=== PATIENT | female | born 1930 | race Caucasian/White ===

== ENCOUNTER 2017-09-28 10:24 | Inpatient (IN) | payer MEDICARE, BC ==
[2017-09-28] MEDS ORDERED: Ondansetron 4 MG/2 ML SDV IVPUSH ONE (11:04)
--- NOTE | 2017-09-28 11:10 | EDM.PDOC ---
ED HPI GENERAL MEDICAL PROBLEM - General Chief Complaint: Gastrointestinal Problem Stated Complaint: ILLNESS Time Seen by Provider: 09/28/17 10:55 Source of Information: Reports: Patient, Family History Limitations: Reports: No Limitations - History of Present Illness INITIAL COMMENTS - FREE TEXT/NARRATIVE: 86-year-old female who still lives independently is brought in by her family because she is very ill. She's had persistent vomiting for the last 12 hours, this follows several weeks of generalized malaise, weakness, and decreased appetite. No significant fevers or chills, no pulmonary complaints. She does have persistent upper respiratory problem, sinus congestion and cold symptoms for 2 weeks. This morning she had emesis 6 times in 40 minutes, and the family could barely get her into the car she was so weak. She still is holding her emesis bag and appears uncomfortable and nauseous. She denies any urinary tract complaints but she frequently has UTIs with no symptoms. Onset: Unknown/Unsure Severity: Moderate Associated Symptoms: Reports: Malaise, Nausea/Vomiting, Weakness. Denies: Fever /Chills, Shortness of Breath - Related Data Allergies Allergy/AdvReac Type Severity Reaction Status Date / Time bacitracin Allergy Blisters Verified 09/28/17 10:41 cephradine [Cephradine] Allergy Hives Verified 09/28/17 10:41 clarithromycin [From Biaxin] Allergy Hives Verified 09/28/17 10:41 Penicillins Allergy Hives Verified 09/28/17 10:41 adhesive AdvReac Blisters Verified 09/28/17 10:41 aspirin AdvReac Nausea Verified 09/28/17 10:41 Home Meds: Home Meds Cholecalciferol (Vitamin D3) [Vitamin D3] 1,000 unit PO DAILY 07/30/13 [History] Cyanocobalamin (Vitamin B-12) [B-12 Dots] 500 mcg PO BID 07/30/13 [History] Furosemide 40 mg PO DAILY 07/30/13 [History] Iron,Carbonyl/Ascorbic Acid [Vitron-C Tablet] 1 each PO DAILY 07/30/13 [History] Levothyroxine [Synthroid] 75 mcg PO DAILY 07/30/13 [History] Metoprolol Tartrate [Lopressor] 25 mg PO BID 07/30/13 [History] Potassium Chloride [Klor-Con 10] 20 meq PO DAILY 07/30/13 [History] Vitamin B Complex [B Complex] 1 each PO DAILY 07/30/13 [History] Nabumetone [Nabumetone] 750 mg PO BID PRN 04/21/15 [History] Acetaminophen [Pain Reliever] 1,000 mg PO ASDIRECTED 09/28/17 [History] Cetirizine HCl [Zyrtec] 10 mg PO DAILY 09/28/17 [History] Digoxin 125 mcg PO DAILY 09/28/17 [History] Melatonin 10 mg PO BEDTIME 09/28/17 [History] Warfarin [Coumadin] 1.25 mg PO ASDIRECTED 09/28/17 [History] Warfarin [Coumadin] 2.5 mg PO ASDIRECTED 09/28/17 [History] Past Medical History Cardiovascular History: Reports: Afib Other Gastrointestinal History: Strangulated bowel Other Musculoskeletal History: . - Past Surgical History Other Cardiovascular Surgeries/Procedures: CAROTID BRUIT GI Surgical History: Reports: Bariatric Procedure Other Musculoskeletal Surgeries/Procedures:: Pain and edema to lower extremitites. Social & Family History - Tobacco Use Smoking Status *Q: Unknown Ever Smoked - Alcohol Use Days Per Week of Alcohol Use: 0 - Recreational Drug Use Recreational Drug Use: No ED ROS GENERAL - Review of Systems Review Of Systems: See Below Constitutional: Reports: Chills, Malaise, Weakness, Decreased Appetite, Weight Loss. Denies: Fever HEENT: Reports: Rhinitis (Stuffy nose for the past several weeks.) Cardiovascular: Denies: Chest Pain GI/Abdominal: Reports: Decreased Appetite, Nausea, Vomiting. Denies: Abdominal Pain, Diarrhea : Reports: No Symptoms Skin: Reports: No Symptoms Neurological: Denies: Confusion, Headache, Numbness, Paresthesia, Syncope Psychiatric: Reports: No Symptoms ED EXAM, GENERAL - Physical Exam Exam: See Below Exam Limited By: No Limitations General Appearance: Alert, Mild Distress (Patient looks very ill, uncomfortable) Eye Exam: Bilateral Eye: Normal Inspection Throat/Mouth: Normal Inspection Head: Atraumatic Respiratory/Chest: No Respiratory Distress, Lungs Clear Cardiovascular: Regular Rate, Rhythm, Systolic Murmur. No: Extra Beats GI/Abdominal: Normal Bowel Sounds, Soft, Non-Tender Extremities: Normal Inspection. No: Pedal Edema Neurological: Alert, Oriented Psychiatric: Normal Mood, Flat Affect Skin Exam: Warm, Dry Course - Vital Signs Last Recorded V/S: Last Vital Signs Temp 98.9 F 09/28/17 14:13 Pulse 78 09/28/17 14:13 Resp 16 09/28/17 14:13 BP 134/49 L 09/28/17 14:13 Pulse Ox 98 09/28/17 14:13 - Orders/Labs/Meds Orders: Active Orders 24 hr Category Date Time Status CULTURE URINE [RM] Stat Lab 09/28/17 12:16 Received Sodium Chloride 0.9% [Normal Saline] 1,000 ml Med 09/28/17 13:30 Active IV ASDIRECTED Medication Orders Acetaminophen (Tylenol) 650 mg PO Q4H PRN PRN Reason: Pain (Mild 1-3)/fever Cetirizine HCl (Zyrtec) 10 mg PO DAILY [facility] Digoxin (Lanoxin) 125 mcg PO DAILY@1300 [facility] Furosemide (Lasix) 40 mg PO DAILY [facility] [place] Sodium Chloride (Normal Saline) 1,000 mls @ 100 mls/hr IV ASDIRECTED [facility] [place] Last Admin: 09/28/17 13:34 Dose: 100 mls/hr Ceftriaxone Sodium 1 gm/ (Sodium Chloride) 50 mls @ 100 mls/hr IV Q24H [facility] Promethazine HCl 12.5 mg/ (Sodium Chloride) 50.5 mls @ 200 mls/hr IV Q6H PRN PRN Reason: Nausea/Vomiting Levothyroxine Sodium (Levothyroxine) 75 mcg PO ACBREAKFAST [facility] [place] Lorazepam (Ativan) 0.5 - 1 mg IVPUSH Q4H PRN PRN Reason: Nausea/Vomiting Melatonin (Melatonin) 9 mg PO BEDTIME [facility] [place] Metoprolol Tartrate (Lopressor) 25 mg PO BID [facility] [place] Nabumetone (Relafen) 750 mg PO BID PRN PRN Reason: PAIN Ondansetron HCl (Zofran Odt) 4 mg PO Q6H PRN PRN Reason: Nausea able to take PO Ondansetron HCl (Zofran) 4 mg IV Q6H PRN PRN Reason: Nausea/Vomiting Potassium Chloride (Klor-Con M20) 20 meq PO DAILY [facility] [place] Senna/Docusate Sodium (Senna Plus) 1 tab PO BID PRN PRN Reason: Constipation Vitamin B Complex (Vitamin B Complex) 1 each PO DAILY [facility] [place] Warfarin Sodium (Coumadin) 2.5 mg PO DAILY@1300 [facility] [place] Labs: Laboratory Tests 09/28/17 09/28/17 09/28/17 Range/Units 11:12 11:12 11:12 WBC 12.0 H (4.5-11.0) K/uL RBC 4.15 (3.30-5.50) M/uL Hgb 12.6 D (12.0-15.0) g/dL Hct 39.8 (36.0-48.0) % MCV 96 (80-98) fL MCH 30 (27-31) pg MCHC 32 (32-36) % Plt Count 313 (150-400) K/uL Neut % (Auto) 73 H (36-66) % Lymph % (Auto) 11 L (24-44) % [place] % (Auto) 6 (2-6) % Eos % (Auto) 9 H (2-4) % Baso % (Auto) 1 (0-1) % PT 20.1 H (9.5-12.0) sec INR 1.83 H (0.80-1.20) Sodium 142 (140-148) mmol/L Potassium 4.1 (3.6-5.2) mmol/L Chloride 107 (100-108) mmol/L Carbon Dioxide 28 (21-32) mmol/L Anion Gap 7.1 (5.0-14.0) mmol/L BUN 36 H D (7-18) mg/dL Creatinine 1.5 H (0.6-1.0) mg/dL Est Cr Clr Drug Dosing 19.94 mL/min Estimated GFR (MDRD) 33 L (>60) Glucose 116 H (74-106) mg/dL Calcium 8.2 L (8.5-10.1) mg/dL Total Bilirubin 0.7 (0.2-1.0) mg/dL AST 21 (15-37) U/L ALT 23 (12-78) U/L Alkaline Phosphatase 132 H (46-116) U/L Total Protein 6.3 L (6.4-8.2) g/dL Albumin 2.4 L (3.4-5.0) g/dL Globulin 3.9 H (2.3-3.5) g/dL Albumin/Globulin Ratio 0.6 L (1.2-2.2) Urine Color Urine Appearance Urine pH (4.5-8.0) Ur Specific [place] (1.008-1.030) Urine Protein (NEGATIVE) mg/dL Urine Glucose (UA) (NEGATIVE) mg/dL Urine Ketones (NEGATIVE) mg/dL Urine Occult Blood (NEGATIVE) Urine Nitrite (NEGATIVE) Urine Bilirubin (NEGATIVE) Urine Urobilinogen (NORMAL) mg/dL Ur Leukocyte Esterase (NEGATIVE) Urine RBC (0-5) Urine WBC (0-5) Ur Epithelial Cells Amorphous Sediment Urine Bacteria Urine Mucus 09/28/17 Range/Units 11:54 WBC (4.5-11.0) K/uL RBC (3.30-5.50) M/uL Hgb (12.0-15.0) g/dL Hct (36.0-48.0) % MCV (80-98) fL MCH (27-31) pg MCHC (32-36) % Plt Count (150-400) K/uL Neut % (Auto) (36-66) % Lymph % (Auto) (24-44) % [place] % (Auto) (2-6) % Eos % (Auto) (2-4) % Baso % (Auto) (0-1) % PT (9.5-12.0) sec INR (0.80-1.20) Sodium (140-148) mmol/L Potassium (3.6-5.2) mmol/L Chloride (100-108) mmol/L Carbon Dioxide (21-32) mmol/L Anion Gap (5.0-14.0) mmol/L BUN (7-18) mg/dL Creatinine (0.6-1.0) mg/dL Est Cr Clr Drug Dosing mL/min Estimated GFR (MDRD) (>60) Glucose (74-106) mg/dL Calcium (8.5-10.1) mg/dL Total Bilirubin (0.2-1.0) mg/dL AST (15-37) U/L ALT (12-78) U/L Alkaline Phosphatase (46-116) U/L Total Protein (6.4-8.2) g/dL Albumin (3.4-5.0) g/dL Globulin (2.3-3.5) g/dL Albumin/Globulin Ratio (1.2-2.2) Urine Color Yellow Urine Appearance Cloudy Urine pH 6.0 (4.5-8.0) Ur Specific [place] 1.015 (1.008-1.030) Urine Protein Trace (NEGATIVE) mg/dL Urine Glucose (UA) Normal (NEGATIVE) mg/dL Urine Ketones Negative (NEGATIVE) mg/dL Urine Occult Blood Negative (NEGATIVE) Urine Nitrite Negative (NEGATIVE) Urine Bilirubin Negative (NEGATIVE) Urine Urobilinogen Normal (NORMAL) mg/dL Ur Leukocyte Esterase Large (NEGATIVE) Urine RBC 0-5 (0-5) Urine WBC Packed H (0-5) Ur Epithelial Cells Few Amorphous Sediment Not seen Urine Bacteria Many Urine Mucus Not seen Meds: Medications Generic Name Dose Route Start Last Admin Trade Name Freq PRN Reason Stop Dose Admin Acetaminophen 650 mg 09/28/17 14:13 Tylenol PO Q4H PRN Pain (Mild 1-3)/fever Cetirizine HCl 10 mg 09/29/17 09:00 Zyrtec PO DAILY [facility] Digoxin 125 mcg 09/29/17 13:00 Lanoxin PO DAILY@1300 [facility] Furosemide 40 mg 09/29/17 09:00 Lasix PO DAILY [facility] Sodium Chloride 1,000 mls @ 100 mls/hr 09/28/17 13:30 09/28/17 13:34 Normal Saline IV 100 mls/hr ASDIRECTED JESU Administration Ceftriaxone Sodium 1 gm/ 50 mls @ 100 mls/hr 09/29/17 13:00 Sodium Chloride IV Q24H [facility]U Promethazine HCl 12.5 mg/ 50.5 mls @ 200 mls/hr 09/28/17 14:13 Sodium Chloride IV Q6H PRN Nausea/Vomiting Levothyroxine Sodium 75 mcg 09/29/17 07:30 Levothyroxine PO ACBREAKFAST [facility] Lorazepam 0.5 - 1 mg 09/28/17 14:13 Ativan IVPUSH Q4H PRN Nausea/Vomiting Melatonin 9 mg 09/28/17 21:00 Melatonin PO BEDTIME [facility] Metoprolol Tartrate 25 mg 09/28/17 21:00 Lopressor PO BID [facility] Nabumetone 750 mg 09/28/17 14:39 Relafen PO BID PRN PAIN Ondansetron HCl 4 mg 09/28/17 14:13 Zofran Odt PO Q6H PRN Nausea able to take PO Ondansetron HCl 4 mg 09/28/17 14:13 Zofran IV Q6H PRN Nausea/Vomiting Potassium Chloride 20 meq 09/29/17 09:00 Klor-Con M20 PO DAILY [facility] Senna/Docusate Sodium 1 tab 09/28/17 14:13 Senna Plus PO BID PRN Constipation Vitamin B Complex 1 each 09/29/17 09:00 Vitamin B Complex PO DAILY [facility] Warfarin Sodium 2.5 mg 09/28/17 15:00 Coumadin PO DAILY@1300 [facility] Discontinued Medications Generic Name Dose Route Start Last Admin Trade Name Fanta PRN Reason Stop Dose Admin Sodium Chloride 1,000 mls @ 500 mls/hr 09/28/17 11:15 09/28/17 11:23 Normal Saline IV 500 mls/hr ASDIRECTED JESU Administration Ceftriaxone Sodium 1 gm/ 50 mls @ 100 mls/hr 09/28/17 13:15 09/28/17 13:35 Sodium Chloride IV 09/28/17 13:44 100 mls/hr ONETIME ONE Administration Ondansetron HCl 4 mg 09/28/17 11:04 09/28/17 11:23 Zofran IVPUSH 09/28/17 11:05 4 mg ONETIME ONE Administration - Re-Assessments/Exams Free Text/Narrative Re-Assessment/Exam: 09/28/17 11:10 An IV was started and the patient was hydrated with normal saline at 500 mL an hour, and given 4 mg of IV Zofran. A UA was obtained by catheterization, CBC CMP were obtained. 09/28/17 12:13 Patient's symptoms did improve with the IV Zofran and fluids, white count was 12 ,000, creatinine is 1.5 which is higher than her typical baseline. UA confirmed a UTI with packed WBCs and bacteria despite being a catheter specimen. A urine culture was initiated and I will ask the hospitalist service to consider hospitalizing her for the next 1-2 days for hydration and treatment of the weakness and UTI. Departure - Departure Time of Disposition: 14:04 Disposition: Admitted As Inpatient 65 Condition: Fair Clinical Impression: UTI (urinary tract infection), bacterial, Weakness, Dehydration, mild - Discharge Information - My Orders Last 24 Hours: My Active Orders 09/28/17 12:16 CULTURE URINE [RM] Stat - Assessment/Plan Last 24 Hours: My Active Orders 09/28/17 12:16 CULTURE URINE [RM] Stat
[2017-09-28] MEDS ORDERED: Sodium Chloride 0.9% 1,000 ML IV SCH (11:15)
[2017-09-28] MEDS ORDERED: cefTRIAXone 1 GM in Sodium Chloride 0.9% 50 ML IV ONE ×2 (12:12→13:15)
[2017-09-28] MEDS: Sodium Chloride 0.9% 1,000 ML IV SCH ×2 (13:34→23:53)
--- NOTE | 2017-09-28 13:46 | PCM.HP ---
H&P History of Present Illness - General Date of Service: 09/28/17 Admit Problem/Dx: Admission Diagnosis/Problem Admission Diagnosis/Problem Acute cystitis without hematuria Source of Information: Patient, Family, Provider History Limitations: Reports: No Limitations - History of Present Illness Initial Comments - Free Text/Narative: Ana presented to the emergency room with nausea, vomiting and weakness. She reports that she's been having chills and some mild weakness over the past week. She had multiple episodes of vomiting overnight and this morning and has had nearly constant nausea. These are symptoms that she often experiences with her urinary tract infections though seem more severe this time. She has not had any dysuria or increased urinary frequency. No report of abdominal pain or nausea prior to onset of symptoms overnight. She has not had any fevers. Appetite had been normal prior to last night. No obvious sick contacts. No complaints of shortness of breath. She had been feeling well up until approximately one week ago. She has had antibiotics within the last month for a urinary tract infection but is told that this had completely cleared up. Previous infectious agents for her urinary tract infections have included Escherichia coli, Klebsiella, Enterobacter rate all of these have been sensitive to ceftriaxone. Workup in the emergency room suggested acute cystitis but there is no evidence for sepsis. She has persistent nausea despite medications and is not safe for outpatient management at this time. She is very weak and requires significant assistance. - Related Data Allergies/Adverse Reactions: Allergies Allergy/AdvReac Type Severity Reaction Status Date / Time bacitracin Allergy Blisters Verified 09/28/17 10:41 cephradine [Cephradine] Allergy Hives Verified 09/28/17 10:41 clarithromycin [From Biaxin] Allergy Hives Verified 09/28/17 10:41 Penicillins Allergy Hives Verified 09/28/17 10:41 adhesive AdvReac Blisters Verified 09/28/17 10:41 aspirin AdvReac Nausea Verified 09/28/17 10:41 Home Medications: Home Meds Cholecalciferol (Vitamin D3) [Vitamin D3] 1,000 unit PO DAILY 07/30/13 [History] Cyanocobalamin (Vitamin B-12) [B-12 Dots] 500 mcg PO BID 07/30/13 [History] Furosemide 40 mg PO DAILY 07/30/13 [History] Iron,Carbonyl/Ascorbic Acid [Vitron-C Tablet] 1 each PO DAILY 07/30/13 [History] Levothyroxine [Synthroid] 75 mcg PO DAILY 07/30/13 [History] Metoprolol Tartrate [Lopressor] 25 mg PO BID 07/30/13 [History] Potassium Chloride [Klor-Con 10] 20 meq PO DAILY 07/30/13 [History] Vitamin B Complex [B Complex] 1 each PO DAILY 07/30/13 [History] Nabumetone [Nabumetone] 750 mg PO BID PRN 04/21/15 [History] Acetaminophen [Pain Reliever] 1,000 mg PO ASDIRECTED 09/28/17 [History] Cetirizine HCl [Zyrtec] 10 mg PO DAILY 09/28/17 [History] Digoxin 125 mcg PO DAILY 09/28/17 [History] Melatonin 10 mg PO BEDTIME 09/28/17 [History] Warfarin [Coumadin] 1.25 mg PO ASDIRECTED 09/28/17 [History] Warfarin [Coumadin] 2.5 mg PO ASDIRECTED 09/28/17 [History] Past Medical History Cardiovascular History: Reports: Afib Other Gastrointestinal History: Strangulated bowel Musculoskeletal History: Reports: Osteoporosis Other Musculoskeletal History: . - Past Surgical History Other Cardiovascular Surgeries/Procedures: CAROTID BRUIT GI Surgical History: Reports: Bariatric Procedure Other Musculoskeletal Surgeries/Procedures:: Pain and edema to lower extremitites. Social & Family History - Family History Cardiac: Denies: CAD - Tobacco Use Smoking Status *Q: Unknown Ever Smoked - Alcohol Use Days Per Week of Alcohol Use: 0 - Recreational Drug Use Recreational Drug Use: No H&P Review of Systems - Review of Systems: Review Of Systems: See Below Free Text/Narrative: A complete 12 point review of systems was obtained. Pertinent positives and negatives are noted in the history of present illness. All other systems were reviewed and were negative except as noted. Exam - Exam Exam: See Below - Vital Signs Vital Signs: Last Vital Signs Temp 37.3 C 09/28/17 13:36 Pulse 80 09/28/17 13:36 Resp 14 09/28/17 13:36 BP 144/48 H 09/28/17 13:36 Pulse Ox 97 09/28/17 13:36 Weight: 60.781 kg - Exam Quality Assessment: No: Supplemental Oxygen General: Alert, Oriented, Cooperative. No: Mild Distress HEENT: Conjunctiva Clear. No: Mucosa Moist & [place] (dry), Scleral Icterus Neck: Supple, Trachea Midline. No: Lymphadenopathy Lungs: Clear to Auscultation, Normal Respiratory Effort Cardiovascular: Regular Rate, Regular Rhythm, Systolic Murmur (aortic stenosis murmur) GI/Abdominal Exam: Normal Bowel Sounds, Soft, No Distention, Tender (suprapubic) Extremities: No Pedal Edema. No: Increased Warmth Peripheral Pulses: 2+: Dorsalis Pedis (L), Dorsalis Pedis (R) Skin: Warm, Dry, Intact Neuro Extensive - Mental Status: Alert, Oriented x3, Nl Response to Commands Neuro Extensive - Motor, Sensory, Reflexes: CN II-XII Intact. No: Dysarthria, Abnormal Motor, Tremor Psychiatric: Alert, Normal Affect - Patient Data Lab Results Last 24 hrs: Laboratory Results - last 24 hr 09/28/17 09/28/17 09/28/17 Range/Units 11:12 11:12 11:12 WBC 12.0 H (4.5-11.0) K/uL RBC 4.15 (3.30-5.50) M/uL Hgb 12.6 D (12.0-15.0) g/dL Hct 39.8 (36.0-48.0) % MCV 96 (80-98) fL MCH 30 (27-31) pg MCHC 32 (32-36) % Plt Count 313 (150-400) K/uL Neut % (Auto) 73 H (36-66) % Lymph % (Auto) 11 L (24-44) % [place] % (Auto) 6 (2-6) % Eos % (Auto) 9 H (2-4) % Baso % (Auto) 1 (0-1) % PT 20.1 H (9.5-12.0) sec INR 1.83 H (0.80-1.20) Sodium 142 (140-148) mmol/L Potassium 4.1 (3.6-5.2) mmol/L Chloride 107 (100-108) mmol/L Carbon Dioxide 28 (21-32) mmol/L Anion Gap 7.1 (5.0-14.0) mmol/L BUN 36 H D (7-18) mg/dL Creatinine 1.5 H (0.6-1.0) mg/dL Est Cr Clr Drug Dosing 19.94 mL/min Estimated GFR (MDRD) 33 L (>60) Glucose 116 H (74-106) mg/dL Calcium 8.2 L (8.5-10.1) mg/dL Total Bilirubin 0.7 (0.2-1.0) mg/dL AST 21 (15-37) U/L ALT 23 (12-78) U/L Alkaline Phosphatase 132 H (46-116) U/L Total Protein 6.3 L (6.4-8.2) g/dL Albumin 2.4 L (3.4-5.0) g/dL Globulin 3.9 H (2.3-3.5) g/dL Albumin/Globulin Ratio 0.6 L (1.2-2.2) Urine Color Urine Appearance Urine pH (4.5-8.0) Ur Specific [place] (1.008-1.030) Urine Protein (NEGATIVE) mg/dL Urine Glucose (UA) (NEGATIVE) mg/dL Urine Ketones (NEGATIVE) mg/dL Urine Occult Blood (NEGATIVE) Urine Nitrite (NEGATIVE) Urine Bilirubin (NEGATIVE) Urine Urobilinogen (NORMAL) mg/dL Ur Leukocyte Esterase (NEGATIVE) Urine RBC (0-5) Urine WBC (0-5) Ur Epithelial Cells Amorphous Sediment Urine Bacteria Urine Mucus 09/28/ Range/Units 11:54 WBC (4.5-11.0) K/uL RBC (3.30-5.50) M/uL Hgb (12.0-15.0) g/dL Hct (36.0-48.0) % MCV (80-98) fL MCH (27-31) pg MCHC (32-36) % Plt Count (150-400) K/uL Neut % (Auto) (36-66) % Lymph % (Auto) (24-44) % [place] % (Auto) (2-6) % Eos % (Auto) (2-4) % Baso % (Auto) (0-1) % PT (9.5-12.0) sec INR (0.80-1.20) Sodium (140-148) mmol/L Potassium (3.6-5.2) mmol/L Chloride (100-108) mmol/L Carbon Dioxide (21-32) mmol/L Anion Gap (5.0-14.0) mmol/L BUN (7-18) mg/dL Creatinine (0.6-1.0) mg/dL Est Cr Clr Drug Dosing mL/min Estimated GFR (MDRD) (>60) Glucose (74-106) mg/dL Calcium (8.5-10.1) mg/dL Total Bilirubin (0.2-1.0) mg/dL AST (15-37) U/L ALT (12-78) U/L Alkaline Phosphatase (46-116) U/L Total Protein (6.4-8.2) g/dL Albumin (3.4-5.0) g/dL Globulin (2.3-3.5) g/dL Albumin/Globulin Ratio (1.2-2.2) Urine Color Yellow Urine Appearance Cloudy Urine pH 6.0 (4.5-8.0) Ur Specific [place] 1.015 (1.008-1.030) Urine Protein Trace (NEGATIVE) mg/dL Urine Glucose (UA) Normal (NEGATIVE) mg/dL Urine Ketones Negative (NEGATIVE) mg/dL Urine Occult Blood Negative (NEGATIVE) Urine Nitrite Negative (NEGATIVE) Urine Bilirubin Negative (NEGATIVE) Urine Urobilinogen Normal (NORMAL) mg/dL Ur Leukocyte Esterase Large (NEGATIVE) Urine RBC 0-5 (0-5) Urine WBC Packed H (0-5) Ur Epithelial Cells Few Amorphous Sediment Not seen Urine Bacteria Many Urine Mucus Not seen Result Diagrams: 09/28/17 11:12 09/28/17 11:12 *Q Meaningful Use (ADM) - VTE *Q VTE Criteria *Q: - VTE Risk Assess *Q Each Risk Factor Represents 1 Point: None Total Score 1 Point Risk Factors: 0 Each Risk Factor Represents 2 Points: None Total Score 2 Point Risk Factors: 0 Each Risk Factor Represents 3 Points: Age 75 Years or Greater Total Score 3 Point Risk Factors: 3 Each Risk Factor Represents 5 Points: None Total Score 5 Point Risk Factors: 0 Venous Thromboembolism Risk Factor Score *Q: 3 - Stroke *Q Stroke Criteria *Q: - AMI *Q AMI Criteria *Q: - Problem List (1) Acute cystitis without hematuria SNOMED Code(s): 26866105 ICD Code: N30.00 - ACUTE CYSTITIS WITHOUT HEMATURIA Status: Acute Current Visit: Yes (2) CKD (chronic kidney disease), stage III SNOMED Code(s): 695266413 ICD Code: N18.3 - CHRONIC KIDNEY DISEASE, STAGE 3 (MODERATE) Status: Chronic Current Visit: Yes (3) Afib, Atrial fibrillation SNOMED Code(s): 30926544 ICD Code: I48.91 - UNSPECIFIED ATRIAL FIBRILLATION Status: Chronic Current Visit: No Problem List Initiated/Reviewed/Updated: Yes Orders Last 24hrs: Active Orders 24 hr Category Date Time Status Patient Status Manage Transfer [TRANSFER] Routine ADT 09/28/17 13:34 Ordered CULTURE URINE [RM] Stat Lab 09/28/17 12:16 Received Sodium Chloride 0.9% [Normal Saline] 1,000 ml Med 09/28/17 13:30 Active IV ASDIRECTED Resuscitation Status Routine Resus Stat 09/28/17 13:39 Ordered Medication Orders Sodium Chloride (Normal Saline) 1,000 mls @ 100 mls/hr IV ASDIRECTED [facility] Last Admin: 09/28/17 13:34 Dose: 100 mls/hr Assessment/Plan Comment:: ASSESSMENT AND PLAN - Acute cystitis - complicated by generalized weakness as well as nausea with vomiting. Not safe for outpatient management given the severity of the symptoms and weakness. Fortunately there is no evidence for sepsis at this time. History of recurrent infections though not frequent. -Ceftriaxone -Gentle IV fluids -Nausea management -Follow-up urine culture Chronic atrial fibrillation - Secondary to valvular heart disease with aortic stenosis. Currently rate controlled. Chronically anticoagulated. INR is 1.8. -Continue rate control -Continue anticoagulation -INR in the morning Stage III chronic kidney disease - Creatinine slightly lower than baseline at this time. I anticipate this is prerenal with her acute infection and should improve with fluids. -Gentle fluids today -Labs in the morning Maintenance issues - - DVT prophylaxis - Warfarin - GI prophylaxis - not indicated - Nutrition - regular diet - Jessica catheter - not indicated CODE STATUS - full treatment without intubation and without ACLS Admission justification - This patient will be admitted for inpatient services and is medically appropriate meeting medical necessity for inpatient admission as outlined in my documentation. I reasonably expect the patient will require inpatient services that span a period time over 2 midnights. I reasonably expect this patient to be discharged or transferred within 96 hours [facility]. Disposition - anticipate discharge home after the hospital stay Primary care physician - Dr Catie Coronel M.D.
[2017-09-28] MEDS ORDERED: NABUMETONE 750 MG PO PRN (14:13)
[2017-09-28] MEDS ORDERED: LORazepam 2 MG/ML SDV IVPUSH PRN (14:13)
[2017-09-28] MEDS ORDERED: Promethazine 12.5 MG in Sodium Chloride 0.9% 50 ML IV PRN (14:13)
[2017-09-28] MEDS ORDERED: Ondansetron 4 MG/2 ML SDV IV PRN (14:13)
[2017-09-28] MEDS ORDERED: Ondansetron 4 MG Tab.DIS PO PRN (14:13)
[2017-09-28] MEDS ORDERED: Acetaminophen 325 MG Tab PO PRN (14:13)
[2017-09-28] MEDS: Warfarin 2.5 MG Tab PO SCH (17:26)
[2017-09-28] MEDS: Melatonin 3 MG Tab PO SCH (20:54)
[2017-09-28] MEDS: Metoprolol Tartrate 25 MG Tab PO SCH (20:54)
[2017-09-28] MEDS ORDERED: Non-Formulary Medication 1 Each (Melatonin [Melatonin] 10 MG) PO SCH (21:00)
[2017-09-29] MEDS ORDERED: Levothyroxine 50 MCG Tab PO SCH (07:30)
[2017-09-29] MEDS ORDERED: POTASSIUM CHLORIDE 20 MEQ PO SCH (09:00)
[2017-09-29] MEDS: Sodium Chloride 0.9% 1,000 ML IV SCH (10:29)
[2017-09-29] MEDS: Metoprolol Tartrate 25 MG Tab PO SCH ×2 (11:20→21:07)
[2017-09-29] MEDS: Potassium Chloride 20 MEQ Tab.ER PO SCH (11:21)
[2017-09-29] MEDS: Levothyroxine 75 MCG Tab PO SCH (11:21)
[2017-09-29] MEDS: Furosemide 40 MG Tab PO SCH (11:21)
[2017-09-29] MEDS: Vitamin B Complex Tab PO SCH (11:21)
[2017-09-29] MEDS: Cetirizine 10 MG Tab PO SCH (11:22)
--- NOTE | 2017-09-29 12:31 | PCM.PN ---
- General Info Date of Service: 09/29/17 Functional Status: Reports: Pain Controlled, Tolerating Diet - Review of Systems General: Reports: Weakness. Denies: Fever Gastrointestinal: Reports: Nausea Systems Review Comment:: Some nausea overnight but otherwise no acute events. No vomiting. Tolerating full liquids. She has not had fevers. Strength is a little better today. White count and any function have both improved from yesterday. Urine culture is growing a gram-negative gómez. - Patient Data Vitals - Most Recent: Last Vital Signs Temp 36.8 C 09/29/17 11:39 Pulse 65 09/29/17 11:39 Resp 16 09/29/17 11:39 BP 152/59 H 09/29/17 11:39 Pulse Ox 95 09/29/17 11:39 Weight - Most Recent: 60.781 kg I&O - Last 24 Hours: Intake & Output 09/28/17 09/29/17 09/29/17 22:59 06:59 14:59 Intake Total 1384 Output Total 800 300 250 Balance 584 -300 -250 Lab Results Last 24 Hours: Laboratory Results - last 24 hr 09/29/17 09/29/17 09/29/17 Range/Units 05:38 05:38 05:38 WBC 10.3 (4.5-11.0) K/uL RBC 3.69 (3.30-5.50) M/uL Hgb 11.3 L (12.0-15.0) g/dL Hct 36.1 (36.0-48.0) % MCV 98 (80-98) fL MCH 31 (27-31) pg MCHC 31 L (32-36) % Plt Count 261 (150-400) K/uL PT 21.6 H (9.5-12.0) sec INR 1.96 H (0.80-1.20) Sodium 149 H (140-148) mmol/L Potassium 3.9 (3.6-5.2) mmol/L Chloride 115 H (100-108) mmol/L Carbon Dioxide 24 (21-32) mmol/L Anion Gap 13.9 (5.0-14.0) mmol/L BUN 24 H (7-18) mg/dL Creatinine 1.1 H (0.6-1.0) mg/dL Est Cr Clr Drug Dosing 28.50 mL/min Estimated GFR (MDRD) 47 L (>60) Glucose 132 H (74-106) mg/dL Calcium 7.8 L (8.5-10.1) mg/dL Med Orders - Current: Current Medications Acetaminophen (Tylenol) 650 mg PO Q4H PRN PRN Reason: Pain (Mild 1-3)/fever Cetirizine HCl (Zyrtec) 10 mg PO DAILY [facility] Last Admin: 09/29/17 11:22 Dose: Not Given Digoxin (Lanoxin) 125 mcg PO DAILY@1300 [facility] Furosemide (Lasix) 40 mg PO DAILY [facility] Last Admin: 09/29/17 11:21 Dose: 40 mg Sodium Chloride (Normal Saline) 1,000 mls @ 100 mls/hr IV ASDIRECTED [facility] Last Admin: 09/29/17 10:29 Dose: 100 mls/hr Ceftriaxone Sodium 1 gm/ (Sodium Chloride) 50 mls @ 100 mls/hr IV Q24H [facility] Promethazine HCl 12.5 mg/ (Sodium Chloride) 50.5 mls @ 200 mls/hr IV Q6H PRN PRN Reason: Nausea/Vomiting Last Admin: 09/29/17 07:43 Dose: 200 mls/hr Levothyroxine Sodium (Levothyroxine) 75 mcg PO ACBREAKFAST [facility] Last Admin: 09/29/17 11:21 Dose: Not Given Lorazepam (Ativan) 0.5 - 1 mg IVPUSH Q4H PRN PRN Reason: Nausea/Vomiting Last Admin: 09/28/17 19:22 Dose: 0.5 mg Melatonin (Melatonin) 9 mg PO BEDTIME [facility] Last Admin: 09/28/17 20:54 Dose: Not Given Metoprolol Tartrate (Lopressor) 25 mg PO BID [facility] Last Admin: 09/29/17 11:20 Dose: 25 mg Nabumetone (Relafen) 750 mg PO BID PRN PRN Reason: PAIN Ondansetron HCl (Zofran Odt) 4 mg PO Q6H PRN PRN Reason: Nausea able to take PO Ondansetron HCl (Zofran) 4 mg IV Q6H PRN PRN Reason: Nausea/Vomiting Last Admin: 09/28/17 17:39 Dose: 4 mg Potassium Chloride (Klor-Con M20) 20 meq PO DAILY [facility] Last Admin: 09/29/17 11:21 Dose: 20 meq Senna/Docusate Sodium (Senna Plus) 1 tab PO BID PRN PRN Reason: Constipation Vitamin B Complex (Vitamin B Complex) 1 each PO DAILY [facility] Last Admin: 09/29/17 11:21 Dose: Not Given Warfarin Sodium (Coumadin) 2.5 mg PO DAILY@1300 [facility] Last Admin: 09/28/17 17:26 Dose: 2.5 mg Discontinued Medications Sodium Chloride (Normal Saline) 1,000 mls @ 500 mls/hr IV ASDIRECTED [facility] Last Admin: 09/28/17 11:23 Dose: 500 mls/hr Ceftriaxone Sodium 1 gm/ (Sodium Chloride) 50 mls @ 100 mls/hr IV ONETIME ONE Stop: 09/28/17 13:44 Last Admin: 09/28/17 13:35 Dose: 100 mls/hr Ondansetron HCl (Zofran) 4 mg IVPUSH ONETIME ONE Stop: 09/28/17 11:05 Last Admin: 09/28/17 11:23 Dose: 4 mg - Exam Quality Assessment: No: Supplemental Oxygen General: Alert, Oriented, Cooperative, No Acute Distress Neck: Supple Lungs: Normal Respiratory Effort GI/Abdominal Exam: No Distention Extremities: No Pedal Edema Skin: Warm, Dry Psy/Mental Status: Alert, Normal Affect - Problem List & Annotations (1) Acute cystitis without hematuria SNOMED Code(s): 30240975 Code(s): N30.00 - ACUTE CYSTITIS WITHOUT HEMATURIA Status: Acute Current Visit: Yes (2) CKD (chronic kidney disease), stage III SNOMED Code(s): 802965137 Code(s): N18.3 - CHRONIC KIDNEY DISEASE, STAGE 3 (MODERATE) Status: Chronic Current Visit: Yes (3) Afib, Atrial fibrillation SNOMED Code(s): 81293801 Code(s): I48.91 - UNSPECIFIED ATRIAL FIBRILLATION Status: Chronic Current Visit: No - Problem List Review Problem List Initiated/Reviewed/Updated: Yes - My Orders Last 24 Hours: My Active Orders 09/28/17 13:39 Resuscitation Status Routine 09/28/17 14:13 Patient Status [ADT] Routine Intake and Output [RC] QSHIFT Notify Provider Vital Signs [RC] ASDIRECTED Oxygen Therapy [RC] PRN Up With Assistance [RC] ASDIRECTED VTE/DVT Education [RC] Per Unit Routine Vital Signs [RC] Q4H Acetaminophen [Tylenol] 650 mg PO Q4H PRN Docusate Sodium/Sennosides [Senna Plus] 1 tab PO BID PRN LORazepam [Ativan] 0.5 - 1 mg IVPUSH Q4H PRN Ondansetron [Zofran ODT] 4 mg PO Q6H PRN Ondansetron [Zofran] 4 mg IV Q6H PRN Promethazine [Phenergan] 12.5 mg Sodium Chloride 0.9% [Normal Saline] 50 ml IV Q6H 09/28/17 14:39 Nabumetone [Relafen] 750 mg PO BID PRN 09/28/17 21:00 Melatonin 9 mg PO BEDTIME 09/29/17 07:30 Levothyroxine 75 mcg PO ACBREAKFAST 09/29/17 09:00 Potassium Chloride [Klor-Con M20] 20 meq PO DAILY 09/29/17 12:30 Convert IV to Saline Lock [OM.PC] Routine 09/29/17 13:00 cefTRIAXone [Rocephin] 1 gm Sodium Chloride 0.9% [Normal Saline] 50 ml IV Q24H 09/29/17 Dinner Regular Diet [DIET] 09/30/17 05:00 BASIC METABOLIC PANEL,BMP [CHEM] Timed CBC W/O DIFF,HEMOGRAM [HEME] Timed (1) INR,PT,PROTHROMBIN TIME [COAG] Timed 09/30/17 07:00 PT Evaluation and Treatment [CONS] Routine - Plan Plan:: ASSESSMENT AND PLAN - Acute cystitis - complicated by generalized weakness as well as nausea with vomiting. Nausea better so far today but still very weak. Urine culture growing a gram-negative gómez. -Ceftriaxone -Saline lock IV -Nausea management -Follow-up urine culture -Physical therapy in the morning Chronic atrial fibrillation - Secondary to valvular heart disease with aortic stenosis. Currently rate controlled. Chronically anticoagulated. INR is 1.9. -Continue rate control -Continue anticoagulation -INR in the morning Stage III chronic kidney disease - Creatinine better after hydration. -Encourage oral intake -Labs in the morning Maintenance issues - - DVT prophylaxis - Warfarin - GI prophylaxis - not indicated - Nutrition - regular diet Disposition - anticipate discharge home after the hospital stay, likely tomorrow or the next day depending on physical therapy evaluation Anuj Coronel M.D.
[2017-09-29] MEDS: cefTRIAXone 1 GM in Sodium Chloride 0.9% 50 ML IV SCH (13:05)
[2017-09-29] MEDS: Digoxin 125 MCG Tab PO SCH (13:06)
[2017-09-29] MEDS: Warfarin 2.5 MG Tab PO SCH (13:06)
[2017-09-29] MEDS: Melatonin 3 MG Tab PO SCH (21:06)
[2017-09-30] MEDS: Levothyroxine 75 MCG Tab PO SCH (07:16)
[2017-09-30] MEDS: Potassium Chloride 20 MEQ Tab.ER PO SCH (09:10)
[2017-09-30] MEDS: Furosemide 40 MG Tab PO SCH (09:11)
[2017-09-30] MEDS: Metoprolol Tartrate 25 MG Tab PO SCH ×2 (09:13→21:49)
[2017-09-30] MEDS: Vitamin B Complex Tab PO SCH (09:14)
[2017-09-30] MEDS: Cetirizine 10 MG Tab PO SCH (09:14)
--- NOTE | 2017-09-30 12:48 | PCM.PN ---
- General Info Date of Service: 09/30/17 Subjective Update: Ms. Hull has remained fairly stable since yesterday, white blood cell count is normal and she has not had significant temperature elevations. Remains very weak and has difficulty with ambulation as well as transfers. She will except [facility] placement for restorative physical therapy and occupational therapy. Functional Status: Reports: Tolerating Diet, Urinating - Review of Systems General: Reports: Weakness. Denies: Fever, Chills Pulmonary: Reports: No Symptoms Cardiovascular: Reports: No Symptoms Gastrointestinal: Reports: No Symptoms Genitourinary: Reports: No Symptoms - Patient Data Vitals - Most Recent: Last Vital Signs Temp 97.9 F 09/30/17 11:20 Pulse 52 L 09/30/17 11:20 Resp 18 09/30/17 11:20 BP 157/93 H 09/30/17 11:20 Pulse Ox 98 09/30/17 11:20 Weight - Most Recent: 134 lb I&O - Last 24 Hours: Intake & Output 09/29/17 09/30/17 09/30/17 22:59 06:59 14:59 Intake Total 1680 240 420 Output Total 104 120 6438 Balance 1580 40 -580 Lab Results Last 24 Hours: Laboratory Results - last 24 hr 09/30/17 09/30/17 09/30/17 Range/Units 05:42 05:42 05:42 WBC 12.3 H (4.5-11.0) K/uL RBC 3.32 (3.30-5.50) M/uL Hgb 10.2 L (12.0-15.0) g/dL Hct 32.8 L (36.0-48.0) % MCV 99 H (80-98) fL MCH 31 (27-31) pg MCHC 31 L (32-36) % Plt Count 239 (150-400) K/uL PT 31.9 H (9.5-12.0) sec INR 2.85 H (0.80-1.20) Sodium 144 (140-148) mmol/L Potassium 3.9 (3.6-5.2) mmol/L Chloride 113 H (100-108) mmol/L Carbon Dioxide 25 (21-32) mmol/L Anion Gap 9.9 (5.0-14.0) mmol/L BUN 19 H (7-18) mg/dL Creatinine 1.1 H (0.6-1.0) mg/dL Est Cr Clr Drug Dosing 28.50 mL/min Estimated GFR (MDRD) 47 L (>60) Glucose 86 (74-106) mg/dL Calcium 7.7 L (8.5-10.1) mg/dL Med Orders - Current: Current Medications Acetaminophen (Tylenol) 650 mg PO Q4H PRN PRN Reason: Pain (Mild 1-3)/fever Cetirizine HCl (Zyrtec) 10 mg PO DAILY [facility] Last Admin: 09/30/17 09:14 Dose: 10 mg Digoxin (Lanoxin) 125 mcg PO DAILY@1300 [facility] Last Admin: 09/29/17 13:06 Dose: 125 mcg Furosemide (Lasix) 40 mg PO DAILY [facility] Last Admin: 09/30/17 09:11 Dose: 40 mg Ceftriaxone Sodium 1 gm/ (Sodium Chloride) 50 mls @ 100 mls/hr IV Q24H [facility] Last Admin: 09/29/17 13:05 Dose: 100 mls/hr Promethazine HCl 12.5 mg/ (Sodium Chloride) 50.5 mls @ 200 mls/hr IV Q6H PRN PRN Reason: Nausea/Vomiting Last Admin: 09/29/17 07:43 Dose: 200 mls/hr Levothyroxine Sodium (Levothyroxine) 75 mcg PO ACBREAKFAST [facility] Last Admin: 09/30/17 07:16 Dose: 75 mcg Lorazepam (Ativan) 0.5 - 1 mg IVPUSH Q4H PRN PRN Reason: Nausea/Vomiting Last Admin: 09/28/17 19:22 Dose: 0.5 mg Melatonin (Melatonin) 9 mg PO BEDTIME [facility] Last Admin: 09/29/17 21:06 Dose: 9 mg Metoprolol Tartrate (Lopressor) 25 mg PO BID [facility] Last Admin: 09/30/17 09:13 Dose: 25 mg Nabumetone (Relafen) 750 mg PO BID PRN PRN Reason: PAIN Ondansetron HCl (Zofran Odt) 4 mg PO Q6H PRN PRN Reason: Nausea able to take PO Ondansetron HCl (Zofran) 4 mg IV Q6H PRN PRN Reason: Nausea/Vomiting Last Admin: 09/28/17 17:39 Dose: 4 mg Potassium Chloride (Klor-Con M20) 20 meq PO DAILY [facility] Last Admin: 09/30/17 09:10 Dose: 20 meq Senna/Docusate Sodium (Senna Plus) 1 tab PO BID PRN PRN Reason: Constipation Vitamin B Complex (Vitamin B Complex) 1 each PO DAILY [facility] Last Admin: 09/30/17 09:14 Dose: 1 each Warfarin Sodium (Coumadin) 2.5 mg PO DAILY@1300 [facility] Last Admin: 09/29/17 13:06 Dose: 2.5 mg Discontinued Medications Sodium Chloride (Normal Saline) 1,000 mls @ 500 mls/hr IV ASDIRECTED [facility] Last Admin: 09/28/17 11:23 Dose: 500 mls/hr Ceftriaxone Sodium 1 gm/ (Sodium Chloride) 50 mls @ 100 mls/hr IV ONETIME ONE Stop: 09/28/17 13:44 Last Admin: 09/28/17 13:35 Dose: 100 mls/hr Sodium Chloride (Normal Saline) 1,000 mls @ 100 mls/hr IV ASDIRECTED [facility] Last Admin: 09/29/17 10:29 Dose: 100 mls/hr Ondansetron HCl (Zofran) 4 mg IVPUSH ONETIME ONE Stop: 09/28/17 11:05 Last Admin: 09/28/17 11:23 Dose: 4 mg - Exam Quality Assessment: DVT Prophylaxis General: Alert, Oriented, Cooperative, Mild Distress Lungs: Clear to Auscultation, Normal Respiratory Effort Cardiovascular: Regular Rate, Regular Rhythm, Murmurs. No: Irregular Rhythm GI/Abdominal Exam: Soft, Non-Tender, No Organomegaly, No Distention Extremities: Non-Tender, No Pedal Edema Skin: Warm, Dry, Intact - Problem List Review Problem List Initiated/Reviewed/Updated: Yes - My Orders Last 24 Hours: My Active Orders 10/01/17 05:00 BASIC METABOLIC PANEL,BMP [CHEM] Timed CBC WITH AUTO DIFF [HEME] Timed INR,PT,PROTHROMBIN TIME [COAG] Timed - Plan Plan:: ASSESSMENT AND PLAN - Acute cystitis - remains very weak, nausea and vomiting have resolved but appetite is still somewhat poor. Urine culture growing Escherichia coli resistant to fluoroquinolones as well as sulfa. -Ceftriaxone -Saline lock IV -Nausea management -Physical therapy Chronic atrial fibrillation - Secondary to valvular heart disease with aortic stenosis. Currently rate controlled. Chronically anticoagulated. INR is therapeutic today -Continue rate control -Continue anticoagulation -INR in the morning Stage III chronic kidney disease -Encourage oral intake -Labs in the morning Maintenance issues - - DVT prophylaxis - Warfarin - GI prophylaxis - not indicated - Nutrition - regular diet Disposition - anticipate discharge to [facility] tomorrow
[2017-09-30] MEDS: cefTRIAXone 1 GM in Sodium Chloride 0.9% 50 ML IV SCH (13:50)
[2017-09-30] MEDS: Warfarin 2.5 MG Tab PO SCH (13:52)
[2017-09-30] MEDS: Digoxin 125 MCG Tab PO SCH (13:53)
[2017-09-30] MEDS: Melatonin 3 MG Tab PO SCH (21:49)
[2017-10-01 07:17] VITALS: BP 131/61
[2017-10-01] MEDS: Levothyroxine 75 MCG Tab PO SCH (07:29)
[2017-10-01] MEDS: Furosemide 40 MG Tab PO SCH (09:28)
[2017-10-01] MEDS: Potassium Chloride 20 MEQ Tab.ER PO SCH (09:28)
[2017-10-01] MEDS: Vitamin B Complex Tab PO SCH (09:28)
[2017-10-01] MEDS: Cetirizine 10 MG Tab PO SCH (09:29)
[2017-10-01] MEDS: Metoprolol Tartrate 25 MG Tab PO SCH (09:30)
--- NOTE | 2017-10-01 11:28 | PCM.DCSUM1 ---
Discharge Summary - Hospital Course Brief History: Ms. Hull is an 86-year-old woman who was admitted through the emergency department with progressive weakness and dehydration secondary to urinary tract infection. - Discharge Data Discharge Date: 10/01/17 Discharge Disposition: DC/Tfer to [facility] 03 Condition: Fair - Discharge Diagnosis/Problem(s) (1) UTI (urinary tract infection), bacterial SNOMED Code(s): 558528165 ICD Code: N39.0 - URINARY TRACT INFECTION, SITE NOT SPECIFIED; A49.9 - BACTERIAL INFECTION, UNSPECIFIED Status: Acute Current Visit: Yes (2) Weakness SNOMED Code(s): 61401121 ICD Code: R53.1 - WEAKNESS Status: Acute Current Visit: Yes (3) Dehydration, mild SNOMED Code(s): 7625497409774 ICD Code: E86.0 - DEHYDRATION Status: Acute Current Visit: Yes (4) Diabetes mellitus type 2 SNOMED Code(s): 98989474 ICD Code: E11.9 - TYPE 2 DIABETES MELLITUS WITHOUT COMPLICATIONS Status: Chronic Current Visit: No - Patient Summary/Data Consults: Consultations 09/30/17 07:00 PT Evaluation and Treatment [CONS] Routine Please Evaluate and Treat. PT Reason for Consult: Strengthening This query below is only for informational purposes and is not editable. Hospital Course: Ms. Hull is an 86-year-old woman who developed progressive weakness at home. On evaluation in the emergency department was found to have evidence of urinary tract infection which was felt to be causing weakness and dehydration. Urine culture was obtained at the time of admission and she was started on IV antibiotic therapy with Rocephin in addition to IV fluids. She improved over the next few days of hospitalization, but remained fairly weak, having difficulty with ambulation and transfers. Urine culture did grow out Escherichia coli which was found to be resistant to fluoroquinolones and sulfa. She will be discharged to the [place] [facility] on an additional 4 days of oral antibiotic therapy with cephalexin 500 mg 3 times daily. She was seen and evaluated by physical therapy during hospital stay and it was felt that she would benefit from a rehabilitation stay at the [place] [facility] for restorative physical therapy and occupational therapy. She is on long-term oral anticoagulation with warfarin, INR is were checked daily during the hospital stay. Activity will be as tolerated and she will be on a low-sodium diet. Follow -up appointment will be scheduled with Dr. Lorenzo within one week. Follow-up INR level will be obtained on October 03. - Patient Instructions Diet: Heart Healthy Diet Activity: As Tolerated Other/Special Instructions: Schedule follow-up appointment with Dr. Haddad within one week. Please check INR on October 03. Daily physical therapy and occupational therapy while at the [facility] [facility]. - Discharge Plan Prescriptions/Med Rec: Cephalexin [IJP: Cephalexin] 500 mg PO .EVERY 8 HOURS #16 cap Home Medications: Home Meds Cholecalciferol (Vitamin D3) [Vitamin D3] 1,000 unit PO DAILY 07/30/13 [History] Cyanocobalamin (Vitamin B-12) [B-12 Dots] 500 mcg PO BID 07/30/13 [History] Furosemide 40 mg PO DAILY 07/30/13 [History] Iron,Carbonyl/Ascorbic Acid [Vitron-C Tablet] 1 each PO DAILY 07/30/13 [History] Levothyroxine [Synthroid] 75 mcg PO DAILY 07/30/13 [History] Metoprolol Tartrate [Lopressor] 25 mg PO BID 07/30/13 [History] Potassium Chloride [Klor-Con 10] 20 meq PO DAILY 07/30/13 [History] Vitamin B Complex [B Complex] 1 each PO DAILY 07/30/13 [History] Nabumetone 750 mg PO BID PRN 04/21/15 [History] Acetaminophen [Pain Reliever] 1,000 mg PO ASDIRECTED 09/28/17 [History] Cetirizine HCl [Zyrtec] 10 mg PO DAILY 09/28/17 [History] Digoxin 125 mcg PO DAILY 09/28/17 [History] Melatonin 10 mg PO BEDTIME 09/28/17 [History] Cephalexin [IJP: Cephalexin] 500 mg PO .EVERY 8 HOURS #16 cap 10/01/17 [Rx] Warfarin [Coumadin] 2.5 mg PO DAILY #0 10/01/17 [Rx] Referrals: Vince Haddad MD [Primary Care Provider] - - Discharge Summary/Plan Comment DC Time >30 min.: No - Patient Data Vitals - Most Recent: Last Vital Signs Temp 97.5 F 10/01/17 07:16 Pulse 62 10/01/17 09:30 Resp 16 10/01/17 07:16 BP 131/61 10/01/17 07:16 Pulse Ox 98 10/01/17 07:16 Weight - Most Recent: 143 lb 0.01 oz I&O - Last 24 hours: Intake & Output 09/30/17 10/01/17 10/01/17 22:59 06:59 14:59 Intake Total 420 620 Output Total 750 300 200 Balance -330 -300 420 Lab Results - Last 24 hrs: Laboratory Results - last 24 hr 10/01/17 10/01/17 10/01/17 Range/Units 04:50 04:50 04:50 WBC 12.5 H (4.5-11.0) K/uL RBC 3.41 (3.30-5.50) M/uL Hgb 10.6 L (12.0-15.0) g/dL Hct 33.4 L (36.0-48.0) % MCV 98 (80-98) fL MCH 31 (27-31) pg MCHC 32 (32-36) % Plt Count 243 (150-400) K/uL Neut % (Auto) 53 (36-66) % Lymph % (Auto) 22 L (24-44) % [place] % (Auto) 9 H (2-6) % Eos % (Auto) 14 H (2-4) % Baso % (Auto) 1 (0-1) % PT 21.9 H (9.5-12.0) sec INR 1.99 H (0.80-1.20) Sodium 144 (140-148) mmol/L Potassium 3.8 (3.6-5.2) mmol/L Chloride 111 H (100-108) mmol/L Carbon Dioxide 26 (21-32) mmol/L Anion Gap 10.8 (5.0-14.0) mmol/L BUN 17 (7-18) mg/dL Creatinine 1.0 (0.6-1.0) mg/dL Est Cr Clr Drug Dosing 31.08 mL/min Estimated GFR (MDRD) 52 L (>60) Glucose 79 (74-106) mg/dL Calcium 7.9 L (8.5-10.1) mg/dL Med Orders - Current: Current Medications Acetaminophen (Tylenol) 650 mg PO Q4H PRN PRN Reason: Pain (Mild 1-3)/fever Cetirizine HCl (Zyrtec) 10 mg PO DAILY [facility] Last Admin: 10/01/17 09:29 Dose: 10 mg Digoxin (Lanoxin) 125 mcg PO DAILY@1300 [facility] Last Admin: 09/30/17 13:53 Dose: 125 mcg Furosemide (Lasix) 40 mg PO DAILY [facility] Last Admin: 10/01/17 09:28 Dose: 40 mg Ceftriaxone Sodium 1 gm/ (Sodium Chloride) 50 mls @ 100 mls/hr IV Q24H [facility] Last Admin: 09/30/17 13:50 Dose: 100 mls/hr Promethazine HCl 12.5 mg/ (Sodium Chloride) 50.5 mls @ 200 mls/hr IV Q6H PRN PRN Reason: Nausea/Vomiting Last Admin: 09/29/17 07:43 Dose: 200 mls/hr Levothyroxine Sodium (Levothyroxine) 75 mcg PO ACBREAKFAST [facility] Last Admin: 10/01/17 07:29 Dose: 75 mcg Lorazepam (Ativan) 0.5 - 1 mg IVPUSH Q4H PRN PRN Reason: Nausea/Vomiting Last Admin: 09/28/17 19:22 Dose: 0.5 mg Melatonin (Melatonin) 9 mg PO BEDTIME [facility] Last Admin: 09/30/17 21:49 Dose: 9 mg Metoprolol Tartrate (Lopressor) 25 mg PO BID [facility] Last Admin: 10/01/17 09:30 Dose: 25 mg Nabumetone (Relafen) 750 mg PO BID PRN PRN Reason: PAIN Ondansetron HCl (Zofran Odt) 4 mg PO Q6H PRN PRN Reason: Nausea able to take PO Ondansetron HCl (Zofran) 4 mg IV Q6H PRN PRN Reason: Nausea/Vomiting Last Admin: 09/28/17 17:39 Dose: 4 mg Potassium Chloride (Klor-Con M20) 20 meq PO DAILY [facility] Last Admin: 10/01/17 09:28 Dose: 20 meq Senna/Docusate Sodium (Senna Plus) 1 tab PO BID PRN PRN Reason: Constipation Vitamin B Complex (Vitamin B Complex) 1 each PO DAILY [facility] Last Admin: 10/01/17 09:28 Dose: 1 each Warfarin Sodium (Coumadin) 2.5 mg PO DAILY@1300 [facility] Last Admin: 09/30/17 13:52 Dose: 2.5 mg Discontinued Medications Sodium Chloride (Normal Saline) 1,000 mls @ 500 mls/hr IV ASDIRECTED [facility] Last Admin: 09/28/17 11:23 Dose: 500 mls/hr Ceftriaxone Sodium 1 gm/ (Sodium Chloride) 50 mls @ 100 mls/hr IV ONETIME ONE Stop: 09/28/17 13:44 Last Admin: 09/28/17 13:35 Dose: 100 mls/hr Sodium Chloride (Normal Saline) 1,000 mls @ 100 mls/hr IV ASDIRECTED [facility] Last Admin: 09/29/17 10:29 Dose: 100 mls/hr Ondansetron HCl (Zofran) 4 mg IVPUSH ONETIME ONE Stop: 09/28/17 11:05 Last Admin: 09/28/17 11:23 Dose: 4 mg - Exam Quality Assessment: Reports: DVT Prophylaxis General: Reports: Alert, Oriented, Cooperative, No Acute Distress Lungs: Reports: Clear to Auscultation, Normal Respiratory Effort Cardiovascular: Reports: Regular Rate, Regular Rhythm, Murmurs GI/Abdominal Exam: Soft, Non-Tender, No Organomegaly, No Distention Extremities: Non-Tender, No Pedal Edema Skin: Reports: Warm, Dry, Intact *Q Meaningful Use (DIS) - VTE *Q VTE Criteria *Q: - Stroke *Q Stroke Criteria *Q: - AMI *Q AMI Criteria *Q:
[2017-10-01] MEDS: Warfarin 2.5 MG Tab PO SCH (12:16)
[2017-10-01] MEDS: Digoxin 125 MCG Tab PO SCH (12:16)
== END 2017-10-01 13:18 | DRG 690 ==
LOC: JP.ED 10:24 → JP.MS 13:34
PROVIDERS: ADMIT Internal Medicine; ATTEND Hospitalist
DX: N30.00 Acute cystitis without hematuria (principal); N18.3 Chronic kidney disease, stage 3 (moderate); B96.20 Unspecified Escherichia coli [E. coli] as the cause of diseases classified elsewhere; E86.0 Dehydration; I48.2 Chronic atrial fibrillation; R53.1 Weakness; R53.81 Other malaise; Z79.01 Long term (current) use of anticoagulants; Z98.84 Bariatric surgery status; Z87.440 Personal history of urinary (tract) infections; Z88.6 Allergy status to analgesic agent; Z88.0 Allergy status to penicillin; Z88.8 Allergy status to other drugs, medicaments and biological substances; Z91.048 Other nonmedicinal substance allergy status
CPT/HCPCS: 36415; 80053; 81001; 85025; 85610; 87086; 87088; 87186; 96361; 96374; 99285; J2405; J7040; 80048; 85027; 97162-GP; 99283; A9270-GY; J0696; J2060; J2550; J7050

== ENCOUNTER 2017-12-06 15:50 | Inpatient (IN) | payer MEDICARE, BC ==
[2017-12-06] MEDS ORDERED: Acetaminophen 500 MG Tab PO PRN (16:39)
[2017-12-06] MEDS ORDERED: Sodium Chloride 0.9% 10 ML Syringe FLUSH PRN (16:40)
[2017-12-06] MEDS ORDERED: Polyethylene Glycol 3350 Powder 17 GM Packet PO PRN (16:40)
[2017-12-06] MEDS ORDERED: Ondansetron 4 MG Tab.DIS PO PRN (16:40)
[2017-12-06] MEDS ORDERED: Sodium Chloride 0.9% 1,000 ML IV SCH (16:45)
--- NOTE | 2017-12-06 16:50 | PCM.HP ---
H&P History of Present Illness - General Date of Service: 12/06/17 Admit Problem/Dx: Admission Diagnosis/Problem Admission Diagnosis/Problem Recurrent urinary tract infection Source of Information: Patient, Family, Provider History Limitations: Reports: No Limitations - History of Present Illness Initial Comments - Free Text/Narative: Ana presented to the clinic with generalized weakness. Workup in the clinic suggested urinary tract infection feeling outpatient therapy and a supratherapeutic INR so she was sent to the hospital for admission. She reports that she's been feeling weak and tired for the past 5 or 6 days. She has not had much of an appetite and has been too weak to get out of her chair on several occasions. She is very fatigued and wants to sleep most of the day. She does not report nausea, abdominal pain or shortness of breath. No dysuria or increased urinary frequency. No dizziness. Mild but chronic and stable lower extremity edema. She was seen in the walk-in clinic 2 days ago and started on ciprofloxacin when urine sample suggested infection. The urine culture returned today growing an Escherichia coli that was resistant to penicillins, for quinolones but was sensitive to ceftriaxone as well as nitrofurantoin. The patient was taking nitrofurantoin prior to onset of the infection on a daily basis as a prophylactic measure. White blood cell count is at the upper limits of normal at 10.3. Her creatinine is 1.38 with GFR of 36. Potassium level was normal. - Related Data Allergies/Adverse Reactions: Allergies Allergy/AdvReac Type Severity Reaction Status Date / Time bacitracin Allergy Blisters Verified 09/28/17 10:41 cephradine [Cephradine] Allergy Hives Verified 09/28/17 10:41 clarithromycin [From Biaxin] Allergy Hives Verified 09/28/17 10:41 Penicillins Allergy Hives Verified 09/28/17 10:41 adhesive AdvReac Blisters Verified 09/28/17 10:41 aspirin AdvReac Nausea Verified 09/28/17 10:41 Home Medications: Home Meds Cholecalciferol (Vitamin D3) [Vitamin D3] 1,000 unit PO DAILY 07/30/13 [History] Cyanocobalamin (Vitamin B-12) [B-12 Dots] 500 mcg PO BID 07/30/13 [History] Furosemide 40 mg PO BID 07/30/13 [History] Iron,Carbonyl/Ascorbic Acid [Vitron-C Tablet] 1 each PO DAILY 07/30/13 [History] Levothyroxine [Synthroid] 75 mcg PO DAILY 07/30/13 [History] Metoprolol Tartrate [Lopressor] 25 mg PO BID 07/30/13 [History] Potassium Chloride [Klor-Con 10] 20 meq PO DAILY 07/30/13 [History] Vitamin B Complex [B Complex] 1 each PO DAILY 07/30/13 [History] Nabumetone 750 mg PO BID PRN 04/21/15 [History] Acetaminophen [Pain Reliever] 1,000 mg PO Q6H PRN 09/28/17 [History] Cetirizine HCl [Zyrtec] 10 mg PO DAILY 09/28/17 [History] Digoxin 125 mcg PO DAILY 09/28/17 [History] Melatonin 10 mg PO BEDTIME 09/28/17 [History] Ciprofloxacin [Ciprofloxacin HCl] 250 mg PO BID 12/06/17 [History] Nitrofurantoin Macrocrystal [Macrodantin] 100 mg PO DAILY 12/06/17 [History] Warfarin [Coumadin] 2.5 mg PO ASDIRECTED 12/06/17 [History] Warfarin [Coumadin] 2.5 mg PO ASDIRECTED 12/06/17 [History] Past Medical History Cardiovascular History: Reports: Afib Other Gastrointestinal History: Strangulated bowel Musculoskeletal History: Reports: Osteoporosis Other Musculoskeletal History: . - Past Surgical History Other Cardiovascular Surgeries/Procedures: CAROTID BRUIT GI Surgical History: Reports: Bariatric Procedure Other Musculoskeletal Surgeries/Procedures:: Pain and edema to lower extremitites. Social & Family History - Family History Family Medical History: Noncontributory - Tobacco Use Smoking Status *Q: Never Smoker - Caffeine Use Caffeine Use: Reports: Tea - Alcohol Use Alcohol Use History: No H&P Review of Systems - Review of Systems: Review Of Systems: See Below Free Text/Narrative: A complete 12 point review of systems was obtained. Pertinent positives and negatives are noted in the history of present illness. All other systems were reviewed and were negative except as noted. Exam - Exam Exam: See Below - Exam Quality Assessment: No: Supplemental Oxygen General: Alert, Oriented, Cooperative. No: Mild Distress HEENT: Conjunctiva Clear, Mucosa Moist & [place]. No: Scleral Icterus Neck: Supple, Trachea Midline. No: Lymphadenopathy Lungs: Clear to Auscultation, Normal Respiratory Effort Cardiovascular: Regular Rate, Regular Rhythm, Systolic Murmur GI/Abdominal Exam: Normal Bowel Sounds, Soft, Non-Tender, No Distention, No Mass Extremities: Pedal Edema (mild bilateral edema). No: Increased Warmth Peripheral Pulses: 1+: Dorsalis Pedis (L), Dorsalis Pedis (R) Skin: Warm, Dry Neuro Extensive - Mental Status: Alert, Oriented x3, Nl Response to Commands Neuro Extensive - Motor, Sensory, Reflexes: CN II-XII Intact. No: Dysarthria, Abnormal Motor, Tremor Psychiatric: Alert, Normal Affect *Q Meaningful Use (ADM) - VTE *Q VTE Pharmacological Contraindications *Q: High INR Value - VTE Risk Assess *Q Each Risk Factor Represents 1 Point: Swollen Legs, Current Total Score 1 Point Risk Factors: 1 Each Risk Factor Represents 2 Points: None Total Score 2 Point Risk Factors: 0 Each Risk Factor Represents 3 Points: Age 75 Years or Greater Total Score 3 Point Risk Factors: 3 Each Risk Factor Represents 5 Points: None Total Score 5 Point Risk Factors: 0 Venous Thromboembolism Risk Factor Score *Q: 4 - Problem List (1) Acute cystitis without hematuria SNOMED Code(s): 08798600 ICD Code: N30.00 - ACUTE CYSTITIS WITHOUT HEMATURIA Status: Acute Current Visit: No (2) Weakness SNOMED Code(s): 30122820 ICD Code: R53.1 - WEAKNESS Status: Acute Current Visit: No (3) Supratherapeutic INR SNOMED Code(s): 378523294 ICD Code: R79.1 - ABNORMAL COAGULATION PROFILE Status: Acute Current Visit: Yes (4) Diabetes mellitus type 2 SNOMED Code(s): 56154426 ICD Code: E11.9 - TYPE 2 DIABETES MELLITUS WITHOUT COMPLICATIONS Status: Chronic Current Visit: No (5) Hypothyroidism SNOMED Code(s): 22912146 ICD Code: E03.9 - HYPOTHYROIDISM, UNSPECIFIED Status: Chronic Current Visit: No (6) Afib, Atrial fibrillation SNOMED Code(s): 13383524 ICD Code: I48.91 - UNSPECIFIED ATRIAL FIBRILLATION Status: Chronic Current Visit: No (7) CKD (chronic kidney disease), stage III SNOMED Code(s): 627198636 ICD Code: N18.3 - CHRONIC KIDNEY DISEASE, STAGE 3 (MODERATE) Status: Chronic Current Visit: No Problem List Initiated/Reviewed/Updated: Yes Orders Last 24hrs: Active Orders 24 hr Category Date Time Status Patient Status [ADT] Routine ADT 12/06/17 16:40 Ordered Intake and Output [RC] QSHIFT Care 12/06/17 16:41 Ordered Notify Provider Vital Signs [RC] ASDIRECTED Care 12/06/17 16:41 Ordered Oxygen Therapy [RC] PRN Care 12/06/17 16:40 Ordered Peripheral IV Care [RC] . DIRECTED Care 12/06/17 16:42 Ordered Up With Assistance [RC] ASDIRECTED Care 12/06/17 16:40 Ordered VTE/DVT Education [RC] Per Unit Routine Care 12/06/17 16:40 Ordered Vital Signs [RC] Q4H Care 12/06/17 16:40 Ordered PT Evaluation and Treatment [CONS] Routine Cons 12/07/17 07:00 Ordered Regular Diet [DIET] Diet 12/06/17 Dinner Ordered BASIC METABOLIC PANEL,BMP [CHEM] AM Lab 12/07/17 05:11 Ordered BASIC METABOLIC PANEL,BMP [CHEM] AM Lab 12/08/17 05:11 Ordered CBC W/O DIFF,HEMOGRAM [HEME] AM Lab 12/07/17 05:11 Ordered CBC W/O DIFF,HEMOGRAM [HEME] AM Lab 12/08/17 05:11 Ordered INR,PT,PROTHROMBIN TIME [COAG] AM Lab 12/07/17 05:11 Ordered INR,PT,PROTHROMBIN TIME [COAG] AM Lab 12/08/17 05:11 Ordered Acetaminophen [Tylenol Extra Strength] Med 12/06/17 16:39 Ordered 1,000 mg PO Q6H PRN Cetirizine [ZyrTEC] Med 12/07/17 09:00 Ordered 10 mg PO DAILY Cholecalciferol (Vitamin D3) [Vitamin D3] Med 12/07/17 09:00 Ordered 1,000 unit PO DAILY Cyanocobalamin (Vitamin B-12) [B-12 Dots] Med 12/06/17 21:00 Ordered 500 mcg PO BID Digoxin [Lanoxin] Med 12/07/17 09:00 Ordered 125 mcg PO DAILY Docusate Sodium/Sennosides [Senna Plus] Med 12/06/17 16:40 Ordered 1 tab PO BID PRN Iron,Carbonyl/Ascorbic Acid [Vitron-C Tablet] Med 12/07/17 09:00 Ordered 1 each PO DAILY Levothyroxine [Synthroid] Med 12/07/17 09:00 Ordered 75 mcg PO DAILY Melatonin [Melatonin] Med 12/06/17 21:00 Ordered 10 mg PO BEDTIME Metoprolol Tartrate [Lopressor] Med 12/06/17 21:00 Ordered 25 mg PO BID Nabumetone [Nabumetone] Med 12/06/17 16:39 Ordered 750 mg PO BID PRN Ondansetron [Zofran ODT] Med 12/06/17 16:40 Ordered 4 mg PO Q6H PRN Phytonadione [AquaMephyton] Med 12/06/17 16:43 Once 5 mg PO ONETIME ONE Polyethylene Glycol 3350 [MiraLAX] Med 12/06/17 16:40 Ordered 17 gm PO DAILY PRN Potassium Chloride [Klor-Con 10] Med 12/07/17 09:00 Ordered 20 meq PO DAILY Sodium Chloride 0.9% [Normal Saline] 1,000 ml Med 12/06/17 16:45 Ordered IV ASDIRECTED Sodium Chloride 0.9% [Saline Flush] Med 12/06/17 16:40 Ordered 10 ml FLUSH ASDIRECTED PRN Vitamin B Complex Med 12/07/17 09:00 Ordered 1 each PO DAILY cefTRIAXone [Rocephin] 1 gm Med 12/06/17 16:45 Ordered Sodium Chloride 0.9% [Normal Saline] 50 ml IV Q24H Peripheral IV Insertion Adult [OM.PC] Routine Oth 12/06/17 16:40 Ordered VTE Pharmacological Contraindications [AST] Per Unit Oth 12/06/17 16:40 Ordered Routine Resuscitation Status Routine Resus Stat 12/06/17 16:40 Ordered Medication Orders Acetaminophen (Tylenol Extra Strength) 1,000 mg PO Q6H PRN PRN Reason: Pain/Fever Cetirizine HCl (Zyrtec) 10 mg PO DAILY JESU Digoxin (Lanoxin) 125 mcg PO DAILY JESU Ceftriaxone Sodium 1 gm/ (Sodium Chloride) 50 mls @ 100 mls/hr IV Q24H JESU Non-Formulary Medication (Cholecalciferol (Vitamin D3) [Vitamin D3]) 1,000 unit PO DAILY JESU Non-Formulary Medication (Cyanocobalamin (Vitamin B-12) [B-12 Dots]) 500 mcg PO BID JESU Non-Formulary Medication (Iron,Carbonyl/Ascorbic Acid [Vitron-C Tablet]) 1 each PO DAILY JESU Senna/Docusate Sodium (Senna Plus) 1 tab PO BID PRN PRN Reason: Constipation Assessment/Plan Comment:: ASSESSMENT AND PLAN - Acute recurrent cystitis without hematuria - Escherichia coli resistant to fluoroquinolones. Was sensitive to nitrofurantoin but she was taking this prophylactically prior to onset of the infection. Bacteria sensitive to ceftriaxone and tetracycline. No evidence for sepsis but she is very weak and not safe for outpatient management. -Ceftriaxone -Gentle fluids overnight -Physical therapy tomorrow Supratherapeutic INR - INR level greater than 8 in the clinic today. Probably complicated by recent fluoroquinolone use. -5 mg of vitamin K by mouth this evening -Repeat level in the morning Stage III chronic kidney disease - creatinine near baseline. -Repeat labs in the morning after gentle fluids Chronic atrial fibrillation - rate controlled. chronically anticoagulated. 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 Maintenance issues - - DVT prophylaxis - should be covered by warfarin, INR supratherapeutic - GI prophylaxis - not indicated - Nutrition - regular - Jessica catheter - not indicated CODE STATUS - DNR/DNI Admission justification - This patient will be admitted for inpatient services and is medically appropriate meeting medical necessity for inpatient admission as outlined in my documentation. I reasonably expect the patient will require inpatient services that span a period time over 2 midnights. I reasonably expect this patient to be discharged or transferred within 96 hours [facility]. Disposition - anticipate discharge to home versus AB long term after the hospital stay Primary care physician - Dr. Catie Coronel M.D.
[2017-12-06] MEDS: cefTRIAXone 1 GM in Sodium Chloride 0.9% 50 ML IV SCH (17:23)
[2017-12-06] MEDS ORDERED: Phytonadione ORAL 5mg/5ml Soln Simple Syrup U/D PO ONE (17:30)
[2017-12-06] MEDS: Cyanocobalamin (Vitamin B12) 1,000 MCG Tab PO SCH (20:32)
[2017-12-06] MEDS: Metoprolol Tartrate 25 MG Tab PO SCH (20:32)
[2017-12-06] MEDS: Melatonin 3 MG Tab PO SCH (22:08)
[2017-12-07] MEDS: Levothyroxine 75 MCG Tab PO SCH (07:42)
[2017-12-07] MEDS: Vitamin B Complex Tab PO SCH (09:30)
[2017-12-07] MEDS: Cyanocobalamin (Vitamin B12) 1,000 MCG Tab PO SCH ×2 (09:30→23:01)
[2017-12-07] MEDS: Potassium Chloride 20 MEQ Tab.ER PO SCH (09:30)
[2017-12-07] MEDS: Cholecalciferol (Vitamin D3) 1,000 Unit Tab PO SCH (09:31)
[2017-12-07] MEDS: Cetirizine 10 MG Tab PO SCH (09:31)
[2017-12-07] MEDS: Ferrous Fumarate/Vitamin C 200-125 MG Tab PO SCH (09:31)
[2017-12-07] MEDS: Metoprolol Tartrate 25 MG Tab PO SCH ×2 (11:06→22:57)
--- NOTE | 2017-12-07 11:56 | PCM.PN ---
- General Info Date of Service: 12/07/17 Functional Status: Reports: Pain Controlled, Tolerating Diet - Review of Systems General: Reports: Weakness Gastrointestinal: Denies: Abdominal Pain Systems Review Comment:: there were no acute events overnight. No fevers. No abdominal pain no vomiting. Patient feels very weak but otherwise feels okay. Appetite is a little better today. urine output has picked up with the fluids overnight. White blood cell count is up slightly from yesterday. - Patient Data Vitals - Most Recent: Last Vital Signs Temp 35.7 C 12/07/17 11:11 Pulse 63 12/07/17 11:11 Resp 16 12/07/17 11:11 BP 99/55 L 12/07/17 11:11 Pulse Ox 96 12/07/17 11:11 Weight - Most Recent: 58.967 kg I&O - Last 24 Hours: Intake & Output 12/06/17 12/07/17 12/07/17 22:59 06:59 14:59 Intake Total 1000 1250 240 Output Total 475 100 200 Balance 525 1150 40 Lab Results Last 24 Hours: Laboratory Results - last 24 hr 12/07/17 12/07/17 12/07/17 Range/Units 05:25 05:25 05:25 WBC 16.3 H (4.5-11.0) K/uL RBC 3.53 (3.30-5.50) M/uL Hgb 10.8 L (12.0-15.0) g/dL Hct 33.7 L (36.0-48.0) % MCV 96 (80-98) fL MCH 31 (27-31) pg MCHC 32 (32-36) % Plt Count 302 (150-400) K/uL PT 60.7 H (9.5-12.0) sec INR 5.29 H* (0.80-1.20) Sodium 143 (140-148) mmol/L Potassium 4.5 (3.6-5.2) mmol/L Chloride 112 H (100-108) mmol/L Carbon Dioxide 24 (21-32) mmol/L Anion Gap 11.5 (5.0-14.0) mmol/L BUN 43 H D (7-18) mg/dL Creatinine 1.6 H D (0.6-1.0) mg/dL Est Cr Clr Drug Dosing 18.34 mL/min Estimated GFR (MDRD) 30 L (>60) Glucose 73 L (74-106) mg/dL Calcium 7.4 L (8.5-10.1) mg/dL Med Orders - Current: Current Medications Acetaminophen (Tylenol Extra Strength) 1,000 mg PO Q6H PRN PRN Reason: Pain/Fever Cetirizine HCl (Zyrtec) 10 mg PO DAILY [facility] Last Admin: 12/07/17 09:31 Dose: 10 mg Cholecalciferol (Vitamin D3) 1,000 units PO DAILY [facility] Last Admin: 12/07/17 09:31 Dose: 1,000 units Cyanocobalamin (Vitamin B12) 500 mcg PO BID [facility] Last Admin: 12/07/17 09:30 Dose: 500 mcg Digoxin (Lanoxin) 125 mcg PO DAILY@1300 [facility] Ceftriaxone Sodium 1 gm/ (Sodium Chloride) 50 mls @ 100 mls/hr IV Q24H [facility] Last Admin: 12/06/17 17:23 Dose: 100 mls/hr Iron/Vitamin C (Vitron-C) 1 tab PO DAILY [facility] Last Admin: 12/07/17 09:31 Dose: 1 tab Levothyroxine Sodium (Levothyroxine) 75 mcg PO DAILY@0730 [facility] Last Admin: 12/07/17 07:42 Dose: 75 mcg Melatonin (Melatonin) 9 mg PO BEDTIME [facility] Last Admin: 12/06/17 22:08 Dose: 9 mg Metoprolol Tartrate (Lopressor) 25 mg PO BID [facility] Last Admin: 12/07/17 11:06 Dose: 25 mg Nabumetone (Relafen) 750 mg PO BID PRN PRN Reason: Pain Ondansetron HCl (Zofran Odt) 4 mg PO Q6H PRN PRN Reason: Nausea able to take PO Polyethylene Glycol (Miralax) 17 gm PO DAILY PRN PRN Reason: Constipation Potassium Chloride (Klor-Con M20) 20 meq PO DAILY [facility] Last Admin: 12/07/17 09:30 Dose: 20 meq Senna/Docusate Sodium (Senna Plus) 1 tab PO BID PRN PRN Reason: Constipation Sodium Chloride (Saline Flush) 10 ml FLUSH ASDIRECTED PRN PRN Reason: Keep Vein Open Vitamin B Complex (Vitamin B Complex) 1 each PO DAILY [facility] Last Admin: 12/07/17 09:30 Dose: 1 each Discontinued Medications Sodium Chloride (Normal Saline) 1,000 mls @ 100 mls/hr IV ASDIRECTED JESU Stop: 12/07/17 02:46 Last Admin: 12/06/17 17:23 Dose: 100 mls/hr Phytonadione (Aquamephyton) 5 mg PO ONETIME ONE Stop: 12/06/17 17:31 Last Admin: 12/06/17 17:25 Dose: 5 mg - Exam Quality Assessment: No: Supplemental Oxygen General: Alert, Oriented, No Acute Distress Neck: Supple Lungs: Normal Respiratory Effort GI/Abdominal Exam: No Distention Extremities: Pedal Edema (mild bilateral ankle edema) Skin: Warm, Dry Psy/Mental Status: Alert, Normal Affect - Problem List & Annotations (1) Acute cystitis without hematuria SNOMED Code(s): 40559769 Code(s): N30.00 - ACUTE CYSTITIS WITHOUT HEMATURIA Status: Acute Current Visit: No (2) Weakness SNOMED Code(s): 53957612 Code(s): R53.1 - WEAKNESS Status: Acute Current Visit: No (3) Supratherapeutic INR SNOMED Code(s): 255451312 Code(s): R79.1 - ABNORMAL COAGULATION PROFILE Status: Acute Current Visit : Yes (4) Diabetes mellitus type 2 SNOMED Code(s): 61712268 Code(s): E11.9 - TYPE 2 DIABETES MELLITUS WITHOUT COMPLICATIONS Status: Chronic Current Visit: No (5) Hypothyroidism SNOMED Code(s): 16119982 Code(s): E03.9 - HYPOTHYROIDISM, UNSPECIFIED Status: Chronic Current Visit: No (6) Afib, Atrial fibrillation SNOMED Code(s): 99433742 Code(s): I48.91 - UNSPECIFIED ATRIAL FIBRILLATION Status: Chronic Current Visit: No (7) CKD (chronic kidney disease), stage III SNOMED Code(s): 762212775 Code(s): N18.3 - CHRONIC KIDNEY DISEASE, STAGE 3 (MODERATE) Status: Chronic Current Visit: No - Problem List Review Problem List Initiated/Reviewed/Updated: Yes - My Orders Last 24 Hours: My Active Orders 12/06/17 16:39 Acetaminophen [Tylenol Extra Strength] 1,000 mg PO Q6H PRN Nabumetone [Relafen] 750 mg PO BID PRN 12/06/17 16:40 Patient Status [ADT] Routine Oxygen Therapy [RC] PRN Up With Assistance [RC] ASDIRECTED VTE/DVT Education [RC] Per Unit Routine Vital Signs [RC] Q4H Docusate Sodium/Sennosides [Senna Plus] 1 tab PO BID PRN Ondansetron [Zofran ODT] 4 mg PO Q6H PRN Polyethylene Glycol 3350 [MiraLAX] 17 gm PO DAILY PRN Sodium Chloride 0.9% [Saline Flush] 10 ml FLUSH ASDIRECTED PRN Peripheral IV Insertion Adult [OM.PC] Routine VTE Pharmacological Contraindications [AST] Per Unit Routine Resuscitation Status Routine 12/06/17 16:41 Intake and Output [RC] QSHIFT Notify Provider Vital Signs [RC] ASDIRECTED 12/06/17 16:42 Peripheral IV Care [RC] . DIRECTED 12/06/17 17:00 cefTRIAXone [Rocephin] 1 gm Sodium Chloride 0.9% [Normal Saline] 50 ml IV Q24H 12/06/17 21:00 Cyanocobalamin (Vitamin B12) [Vitamin B12] 500 mcg PO BID Melatonin 9 mg PO BEDTIME Metoprolol Tartrate [Lopressor] 25 mg PO BID 12/06/17 Dinner Regular Diet [DIET] 12/07/17 07:00 PT Evaluation and Treatment [CONS] Routine 12/07/17 07:30 Levothyroxine 75 mcg PO DAILY@0730 12/07/17 09:00 Cetirizine [ZyrTEC] 10 mg PO DAILY Cholecalciferol (Vitamin D3) [Vitamin D3] 1,000 units PO DAILY Ferrous Fumarate/Vitamin C [Vitron-C] 1 tab PO DAILY Potassium Chloride [Klor-Con M20] 20 meq PO DAILY Vitamin B Complex 1 each PO DAILY 12/07/17 13:00 Digoxin [Lanoxin] 125 mcg PO DAILY@1300 12/08/17 05:11 BASIC METABOLIC PANEL,BMP [CHEM] AM CBC W/O DIFF,HEMOGRAM [HEME] AM INR,PT,PROTHROMBIN TIME [COAG] AM - Plan Plan:: ASSESSMENT AND PLAN - Acute recurrent cystitis without hematuria - Escherichia coli resistant to fluoroquinolones. stable to improving with current treatment. -Ceftriaxone -Gentle fluids overnight -Physical therapy -plan to resume daily suppressive therapy once this course of antibiotics is complete Supratherapeutic INR - INR level greater than 8 in the clinic yesterday, down to 5.8 this morning. -Repeat level in the morning Stage III chronic kidney disease - creatinine near baseline. -Repeat labs in the morning Chronic atrial fibrillation - rate controlled. chronically anticoagulated. 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 Maintenance issues - - DVT prophylaxis - should be covered by warfarin, INR supratherapeutic - GI prophylaxis - not indicated - Nutrition - regular - Jessica catheter - not indicated Disposition - anticipate discharge to home versus care home after the hospital stay Anuj Coronel M.D.
[2017-12-07] MEDS: Digoxin 125 MCG Tab PO SCH (13:04)
[2017-12-07] MEDS: cefTRIAXone 1 GM in Sodium Chloride 0.9% 50 ML IV SCH (16:04)
[2017-12-07] MEDS: Melatonin 3 MG Tab PO SCH (23:01)
[2017-12-08] MEDS: Levothyroxine 75 MCG Tab PO SCH (07:37)
[2017-12-08] MEDS: Cetirizine 10 MG Tab PO SCH (08:54)
[2017-12-08] MEDS: Cyanocobalamin (Vitamin B12) 1,000 MCG Tab PO SCH ×2 (08:54→21:07)
[2017-12-08] MEDS: Vitamin B Complex Tab PO SCH (08:54)
[2017-12-08] MEDS: Ferrous Fumarate/Vitamin C 200-125 MG Tab PO SCH (08:54)
[2017-12-08] MEDS: Metoprolol Tartrate 25 MG Tab PO SCH ×2 (08:56→21:07)
[2017-12-08] MEDS: Potassium Chloride 20 MEQ Tab.ER PO SCH (09:17)
--- NOTE | 2017-12-08 09:52 | PCM.PN ---
- General Info Date of Service: 12/08/17 Functional Status: Reports: Pain Controlled, Tolerating Diet - Review of Systems General: Reports: Weakness. Denies: Fever Gastrointestinal: Denies: Abdominal Pain Systems Review Comment:: There were no acute events overnight. She has not had any abdominal pain, nausea or fevers. Appetite is slowly improving. Strength is slowly improving. She is able to ambulate slightly longer distances but becomes very fatigued after walking. Tolerating current antibiotics. She is hoping that another day of strengthening will help her improve to the point that she does not need to go to the halfway. - Patient Data Vitals - Most Recent: Last Vital Signs Temp 36.2 C 12/08/17 07:21 Pulse 69 12/08/17 08:56 Resp 16 12/08/17 07:21 BP 109/44 L 12/08/17 08:56 Pulse Ox 95 12/08/17 07:21 Weight - Most Recent: 58.967 kg I&O - Last 24 Hours: Intake & Output 12/07/17 12/08/17 12/08/17 22:59 06:59 14:59 Intake Total 770 355 Output Total 800 150 300 Balance -30 -150 55 Lab Results Last 24 Hours: Laboratory Results - last 24 hr 12/08/17 12/08/17 12/08/17 Range/Units 05:08 05:08 05:08 WBC 12.3 H (4.5-11.0) K/uL RBC 3.53 (3.30-5.50) M/uL Hgb 10.8 L (12.0-15.0) g/dL Hct 34.1 L (36.0-48.0) % MCV 97 (80-98) fL MCH 31 (27-31) pg MCHC 32 (32-36) % Plt Count 279 (150-400) K/uL PT 17.4 H (9.5-12.0) sec INR 1.59 H D (0.80-1.20) Sodium 139 L (140-148) mmol/L Potassium 4.1 (3.6-5.2) mmol/L Chloride 110 H (100-108) mmol/L Carbon Dioxide 24 (21-32) mmol/L Anion Gap 9.1 (5.0-14.0) mmol/L BUN 39 H (7-18) mg/dL Creatinine 1.3 H (0.6-1.0) mg/dL Est Cr Clr Drug Dosing 22.57 mL/min Estimated GFR (MDRD) 39 L (>60) Glucose 74 (74-106) mg/dL Calcium 7.5 L (8.5-10.1) mg/dL Med Orders - Current: Current Medications Acetaminophen (Tylenol Extra Strength) 1,000 mg PO Q6H PRN PRN Reason: Pain/Fever Cefdinir (Omnicef) 300 mg PO BID [facility] Cetirizine HCl (Zyrtec) 10 mg PO DAILY [facility] Last Admin: 12/08/17 08:54 Dose: 10 mg Cholecalciferol (Vitamin D3) 1,000 units PO DAILY [facility] Last Admin: 12/07/17 09:31 Dose: 1,000 units Cyanocobalamin (Vitamin B12) 500 mcg PO BID [facility] Last Admin: 12/08/17 08:54 Dose: 500 mcg Digoxin (Lanoxin) 125 mcg PO DAILY@1300 [facility] Last Admin: 12/07/17 13:04 Dose: 125 mcg Ceftriaxone Sodium 1 gm/ (Sodium Chloride) 50 mls @ 100 mls/hr IV Q24H [facility] Stop: 12/08/17 19:00 Last Admin: 12/07/17 16:04 Dose: 100 mls/hr Iron/Vitamin C (Vitron-C) 1 tab PO DAILY [facility] Last Admin: 12/08/17 08:54 Dose: 1 tab Levothyroxine Sodium (Levothyroxine) 75 mcg PO DAILY@0730 [facility] Last Admin: 12/08/17 07:37 Dose: 75 mcg Melatonin (Melatonin) 9 mg PO BEDTIME [facility] Last Admin: 12/07/17 23:01 Dose: 9 mg Metoprolol Tartrate (Lopressor) 25 mg PO BID [facility] Last Admin: 12/08/17 08:56 Dose: 25 mg Nabumetone (Relafen) 750 mg PO BID PRN PRN Reason: Pain Ondansetron HCl (Zofran Odt) 4 mg PO Q6H PRN PRN Reason: Nausea able to take PO Polyethylene Glycol (Miralax) 17 gm PO DAILY PRN PRN Reason: Constipation Potassium Chloride (Potassium Chloride) 20 meq PO DAILY [facility] Senna/Docusate Sodium (Senna Plus) 1 tab PO BID PRN PRN Reason: Constipation Sodium Chloride (Saline Flush) 10 ml FLUSH ASDIRECTED PRN PRN Reason: Keep Vein Open Vitamin B Complex (Vitamin B Complex) 1 each PO DAILY [facility] Last Admin: 12/08/17 08:54 Dose: 1 each Warfarin Sodium (Coumadin) 3.75 mg PO ONETIME ONE Stop: 12/08/17 13:01 Discontinued Medications Sodium Chloride (Normal Saline) 1,000 mls @ 100 mls/hr IV ASDIRECTED [facility] Stop: 12/07/17 02:46 Last Admin: 12/06/17 17:23 Dose: 100 mls/hr Phytonadione (Aquamephyton) 5 mg PO ONETIME ONE Stop: 12/06/17 17:31 Last Admin: 12/06/17 17:25 Dose: 5 mg Potassium Chloride (Klor-Con M20) 20 meq PO DAILY [facility] Last Admin: 12/08/17 09:17 Dose: Not Given - Exam Quality Assessment: No: Supplemental Oxygen General: Alert, Oriented, Cooperative, No Acute Distress Neck: Supple Lungs: Normal Respiratory Effort GI/Abdominal Exam: Soft, No Distention Extremities: No Pedal Edema Psy/Mental Status: Alert, Normal Affect - Problem List & Annotations (1) Acute cystitis without hematuria SNOMED Code(s): 53151683 Code(s): N30.00 - ACUTE CYSTITIS WITHOUT HEMATURIA Status: Acute Current Visit: No (2) Weakness SNOMED Code(s): 37946943 Code(s): R53.1 - WEAKNESS Status: Acute Current Visit: No (3) Supratherapeutic INR SNOMED Code(s): 760276179 Code(s): R79.1 - ABNORMAL COAGULATION PROFILE Status: Acute Current Visit : Yes (4) Diabetes mellitus type 2 SNOMED Code(s): 28004465 Code(s): E11.9 - TYPE 2 DIABETES MELLITUS WITHOUT COMPLICATIONS Status: Chronic Current Visit: No (5) Hypothyroidism SNOMED Code(s): 98298285 Code(s): E03.9 - HYPOTHYROIDISM, UNSPECIFIED Status: Chronic Current Visit: No (6) Afib, Atrial fibrillation SNOMED Code(s): 30510707 Code(s): I48.91 - UNSPECIFIED ATRIAL FIBRILLATION Status: Chronic Current Visit: No (7) CKD (chronic kidney disease), stage III SNOMED Code(s): 964886502 Code(s): N18.3 - CHRONIC KIDNEY DISEASE, STAGE 3 (MODERATE) Status: Chronic Current Visit: No - Problem List Review Problem List Initiated/Reviewed/Updated: Yes - My Orders Last 24 Hours: My Active Orders 12/07/17 09:00 Cetirizine [ZyrTEC] 10 mg PO DAILY Cholecalciferol (Vitamin D3) [Vitamin D3] 1,000 units PO DAILY Ferrous Fumarate/Vitamin C [Vitron-C] 1 tab PO DAILY Vitamin B Complex 1 each PO DAILY 12/07/17 11:56 Communication Order [RC] ROUTINE 12/07/17 13:00 Digoxin [Lanoxin] 125 mcg PO DAILY@1300 12/08/17 13:00 Warfarin [Coumadin] 3.75 mg PO ONETIME ONE 12/09/17 05:00 BASIC METABOLIC PANEL,BMP [CHEM] Timed CBC W/O DIFF,HEMOGRAM [HEME] Timed (1) 12/09/17 09:00 Potassium Chloride 20 meq PO DAILY 12/09/17 21:00 Cefdinir [Omnicef] 300 mg PO BID - Plan Plan:: ASSESSMENT AND PLAN - Acute recurrent cystitis without hematuria - Escherichia coli resistant to fluoroquinolones. stable to improving with current treatment. -Change antibiotics to cefdinir -Gentle fluids overnight -Physical therapy -plan to resume daily suppressive therapy once this course of antibiotics is complete Supratherapeutic INR - INR level now down slightly below 2. -Warfarin 3.75 mg today -Repeat level in the morning Stage III chronic kidney disease - creatinine near baseline and slightly better today. -Repeat labs in the morning Chronic atrial fibrillation - rate controlled. chronically anticoagulated. -Hold home medications -Restart anticoagulation as above History of Patti-en-Y gastric bypass - continue home supplements. Maintenance issues - - DVT prophylaxis - should be covered by warfarin, INR supratherapeutic - GI prophylaxis - not indicated - Nutrition - regular - Jessica catheter - not indicated Disposition - anticipate discharge to home versus halfway after the hospital stay Anuj Coronel M.D.
[2017-12-08] MEDS: Cholecalciferol (Vitamin D3) 1,000 Unit Tab PO SCH (10:22)
[2017-12-08] MEDS: Digoxin 125 MCG Tab PO SCH (12:57)
[2017-12-08] MEDS ORDERED: Warfarin 2.5 MG Tab PO ONE (13:00)
[2017-12-08] MEDS: cefTRIAXone 1 GM in Sodium Chloride 0.9% 50 ML IV SCH (16:01)
[2017-12-08] MEDS: Melatonin 3 MG Tab PO SCH (21:44)
[2017-12-09] MEDS: Levothyroxine 75 MCG Tab PO SCH (08:09)
[2017-12-09] MEDS: Ferrous Fumarate/Vitamin C 200-125 MG Tab PO SCH (08:10)
[2017-12-09] MEDS: Vitamin B Complex Tab PO SCH (08:10)
[2017-12-09] MEDS: Cetirizine 10 MG Tab PO SCH (08:11)
[2017-12-09] MEDS: Cholecalciferol (Vitamin D3) 1,000 Unit Tab PO SCH (08:11)
[2017-12-09] MEDS: POTASSIUM CHLORIDE 10 MEQ PO SCH (08:11)
[2017-12-09] MEDS: Cyanocobalamin (Vitamin B12) 1,000 MCG Tab PO SCH ×2 (08:11→20:23)
[2017-12-09] MEDS: Metoprolol Tartrate 25 MG Tab PO SCH ×2 (08:13→20:18)
--- NOTE | 2017-12-09 12:18 | PCM.PN ---
- General Info Date of Service: 12/09/17 Subjective Update: Ms. Hull has been stable over the past 24 hours with no recurrent temperature elevation. She has been very weak, difficulty with transfers and somewhat unsteady with ambulation. Functional Status: Reports: Pain Controlled, Tolerating Diet, Urinating - Review of Systems General: Reports: Weakness, Fatigue. Denies: Fever, Chills Pulmonary: Reports: No Symptoms Cardiovascular: Reports: No Symptoms Gastrointestinal: Reports: No Symptoms Genitourinary: Reports: No Symptoms - Patient Data Vitals - Most Recent: Last Vital Signs Temp 97.5 F 12/09/17 10:49 Pulse 78 12/09/17 10:49 Resp 16 12/09/17 10:49 BP 122/40 L 12/09/17 10:49 Pulse Ox 95 12/09/17 10:49 Weight - Most Recent: 130 lb I&O - Last 24 Hours: Intake & Output 12/08/17 12/09/17 12/09/17 22:59 06:59 14:59 Intake Total 720 240 240 Output Total 300 200 200 Balance 420 40 40 Lab Results Last 24 Hours: Laboratory Results - last 24 hr 12/09/17 12/09/17 Range/Units 05:46 05:46 WBC 12.0 H (4.5-11.0) K/uL RBC 3.55 (3.30-5.50) M/uL Hgb 11.0 L (12.0-15.0) g/dL Hct 34.3 L (36.0-48.0) % MCV 97 (80-98) fL MCH 31 (27-31) pg MCHC 32 (32-36) % Plt Count 288 (150-400) K/uL Sodium 140 (140-148) mmol/L Potassium 4.3 (3.6-5.2) mmol/L Chloride 110 H (100-108) mmol/L Carbon Dioxide 25 (21-32) mmol/L Anion Gap 9.3 (5.0-14.0) mmol/L BUN 30 H (7-18) mg/dL Creatinine 1.1 H (0.6-1.0) mg/dL Est Cr Clr Drug Dosing 26.68 mL/min Estimated GFR (MDRD) 47 L (>60) Glucose 73 L (74-106) mg/dL Calcium 7.6 L (8.5-10.1) mg/dL Med Orders - Current: Current Medications Acetaminophen (Tylenol Extra Strength) 1,000 mg PO Q6H PRN PRN Reason: Pain/Fever Cefdinir (Omnicef) 300 mg PO BID [facility] Cetirizine HCl (Zyrtec) 10 mg PO DAILY [facility] Last Admin: 12/09/17 08:11 Dose: 10 mg Cholecalciferol (Vitamin D3) 1,000 units PO DAILY [facility] Last Admin: 12/09/17 08:11 Dose: 1,000 units Cyanocobalamin (Vitamin B12) 500 mcg PO BID [facility] Last Admin: 12/09/17 08:11 Dose: 500 mcg Digoxin (Lanoxin) 125 mcg PO DAILY@1300 [facility] Last Admin: 12/08/17 12:57 Dose: 125 mcg Iron/Vitamin C (Vitron-C) 1 tab PO DAILY [facility] Last Admin: 12/09/17 08:10 Dose: 1 tab Levothyroxine Sodium (Levothyroxine) 75 mcg PO DAILY@0730 [facility] Last Admin: 12/09/17 08:09 Dose: 75 mcg Melatonin (Melatonin) 9 mg PO BEDTIME [facility] Last Admin: 12/08/17 21:44 Dose: 9 mg Metoprolol Tartrate (Lopressor) 25 mg PO BID [facility] Last Admin: 12/09/17 08:13 Dose: 25 mg Nabumetone (Relafen) 750 mg PO BID PRN PRN Reason: Pain Ondansetron HCl (Zofran Odt) 4 mg PO Q6H PRN PRN Reason: Nausea able to take PO Polyethylene Glycol (Miralax) 17 gm PO DAILY PRN PRN Reason: Constipation Potassium Chloride (Potassium Chloride) 20 meq PO DAILY [facility] Last Admin: 12/09/17 08:11 Dose: 20 meq Senna/Docusate Sodium (Senna Plus) 1 tab PO BID PRN PRN Reason: Constipation Sodium Chloride (Saline Flush) 10 ml FLUSH ASDIRECTED PRN PRN Reason: Keep Vein Open Vitamin B Complex (Vitamin B Complex) 1 each PO DAILY [facility] Last Admin: 12/09/17 08:10 Dose: 1 each Discontinued Medications Ceftriaxone Sodium 1 gm/ (Sodium Chloride) 50 mls @ 100 mls/hr IV Q24H [facility] Stop: 12/08/17 19:00 Last Admin: 12/08/17 16:01 Dose: 100 mls/hr Sodium Chloride (Normal Saline) 1,000 mls @ 100 mls/hr IV ASDIRECTED [facility] Stop: 12/07/17 02:46 Last Admin: 12/06/17 17:23 Dose: 100 mls/hr Phytonadione (Aquamephyton) 5 mg PO ONETIME ONE Stop: 12/06/17 17:31 Last Admin: 12/06/17 17:25 Dose: 5 mg Potassium Chloride (Klor-Con M20) 20 meq PO DAILY [facility] Last Admin: 12/08/17 09:17 Dose: Not Given Warfarin Sodium (Coumadin) 3.75 mg PO ONETIME ONE Stop: 12/08/17 13:01 Last Admin: 12/08/17 12:57 Dose: 3.75 mg - Exam Quality Assessment: DVT Prophylaxis General: Alert, Oriented, Cooperative, No Acute Distress Lungs: Clear to Auscultation, Normal Respiratory Effort Cardiovascular: Regular Rate, Regular Rhythm, No Murmurs GI/Abdominal Exam: Soft, Non-Tender, No Organomegaly, No Distention Extremities: Non-Tender, No Pedal Edema Skin: Warm, Dry, Intact - Problem List Review Problem List Initiated/Reviewed/Updated: Yes - My Orders Last 24 Hours: My Active Orders 12/10/17 05:00 BASIC METABOLIC PANEL,BMP [CHEM] Timed CBC WITH AUTO DIFF [HEME] Timed INR,PT,PROTHROMBIN TIME [COAG] Timed - Plan Plan:: ASSESSMENT AND PLAN - Acute recurrent cystitis without hematuria - Escherichia coli resistant to fluoroquinolones. No recurrent temperature elevations -Change antibiotics to cefdinir -Saline lock IV -Physical therapy -plan to resume daily suppressive therapy once this course of antibiotics is complete Supratherapeutic INR - INR level now down slightly below 2. -Warfarin 3.75 mg today -Repeat level in the morning Stage III chronic kidney disease - creatinine near baseline and slightly better today. -Repeat labs in the morning Chronic atrial fibrillation - rate controlled. chronically anticoagulated. -Hold home medications -Restart anticoagulation as above History of Patti-en-Y gastric bypass - continue home supplements. Maintenance issues - - DVT prophylaxis - should be covered by warfarin, INR supratherapeutic - GI prophylaxis - not indicated - Nutrition - regular - Jessica catheter - not indicated Disposition - anticipate discharge to home versus senior care after the hospital stay
[2017-12-09] MEDS: Digoxin 125 MCG Tab PO SCH (12:59)
[2017-12-09] MEDS ORDERED: Warfarin 5 MG Tab PO ONE (14:45)
[2017-12-09] MEDS: Cefdinir 300 MG Cap PO SCH (20:23)
[2017-12-09] MEDS: Melatonin 3 MG Tab PO SCH (20:23)
[2017-12-10] MEDS: Levothyroxine 75 MCG Tab PO SCH (07:40)
[2017-12-10] MEDS: Cefdinir 300 MG Cap PO SCH (08:45)
[2017-12-10] MEDS: Cholecalciferol (Vitamin D3) 1,000 Unit Tab PO SCH (08:46)
[2017-12-10] MEDS: POTASSIUM CHLORIDE 10 MEQ PO SCH (08:46)
[2017-12-10] MEDS: Metoprolol Tartrate 25 MG Tab PO SCH (08:46)
[2017-12-10] MEDS: Ferrous Fumarate/Vitamin C 200-125 MG Tab PO SCH (08:46)
[2017-12-10] MEDS: Vitamin B Complex Tab PO SCH (08:46)
[2017-12-10] MEDS: Cetirizine 10 MG Tab PO SCH (08:47)
[2017-12-10] MEDS: Cyanocobalamin (Vitamin B12) 1,000 MCG Tab PO SCH (08:47)
--- NOTE | 2017-12-10 12:19 | PCM.DCSUM1 ---
Discharge Summary - Hospital Course Brief History: Ms. Hull is an 87-year-old woman who is admitted through the emergency department with severe weakness and dehydration secondary to underlying urinary tract infection. - Discharge Data Discharge Date: 12/10/17 Discharge Disposition: DC/Tfer to SNF 03 Condition: Fair - Discharge Diagnosis/Problem(s) (1) UTI (urinary tract infection) SNOMED Code(s): 72588050 ICD Code: N39.0 - URINARY TRACT INFECTION, SITE NOT SPECIFIED Status: Acute Current Visit: Yes (2) Weakness SNOMED Code(s): 58004845 ICD Code: R53.1 - WEAKNESS Status: Acute Current Visit: Yes (3) Supratherapeutic INR SNOMED Code(s): 748852640 ICD Code: R79.1 - ABNORMAL COAGULATION PROFILE Status: Acute Current Visit: Yes (4) Diabetes mellitus type 2 SNOMED Code(s): 64279509 ICD Code: E11.9 - TYPE 2 DIABETES MELLITUS WITHOUT COMPLICATIONS Status: Chronic Current Visit: No (5) Afib, Atrial fibrillation SNOMED Code(s): 00093808 ICD Code: I48.91 - UNSPECIFIED ATRIAL FIBRILLATION Status: Chronic Current Visit: No (6) CKD (chronic kidney disease), stage III SNOMED Code(s): 447027561 ICD Code: N18.3 - CHRONIC KIDNEY DISEASE, STAGE 3 (MODERATE) Status: Chronic Current Visit: No - Patient Summary/Data Consults: Consultations 12/07/17 07:00 PT Evaluation and Treatment [CONS] Routine Please Evaluate and Treat. PT Reason for Consult: Strengthening This query below is only for informational purposes and is not editable. Hospital Course: Ana presented to the clinic with generalized weakness. Workup in the clinic suggested urinary tract infection feeling outpatient therapy and a supratherapeutic INR so she was sent to the hospital for admission. She reports that she's been feeling weak and tired for the past 5 or 6 days. She has not had much of an appetite and has been too weak to get out of her chair on several occasions. She is very fatigued and wants to sleep most of the day. She does not report nausea, abdominal pain or shortness of breath. No dysuria or increased urinary frequency. No dizziness. Mild but chronic and stable lower extremity edema. She was seen in the walk-in clinic 2 days ago and started on ciprofloxacin when urine sample suggested infection. The urine culture returned today growing an Escherichia coli that was resistant to penicillins, floroquinolones but was sensitive to ceftriaxone as well as nitrofurantoin. The patient was taking nitrofurantoin prior to onset of the infection on a daily basis as a prophylactic measure. White blood cell count is at the upper limits of normal at 10.3. Her creatinine is 1.38 with GFR of 36. Potassium level was normal. She was admitted to the hospital and given IV fluids for hydration, IV antibiotic therapy with ceftriaxone, and vitamin K. Interventions resulted in improvement in her renal function, back to baseline by the time of discharge. INR became subtherapeutic with use of vitamin K and had not yet returned to therapeutic range by the time of discharge. She remained very weak throughout her hospital stay and will require discharge to [facility] for restorative is occult therapy and occupational therapy. She will complete another 3 days of oral antibiotic therapy with Omnicef. Follow-up INR will be obtained on December 12. Follow-up urinalysis will be obtained on November 15. Activity will be as tolerated and she will resume her usual diet. - Patient Instructions Diet: Heart Healthy Diet, Diabetic Diet Activity: As Tolerated Other/Special Instructions: Please obtain a follow-up INR on December 12. Please obtain a follow-up urinalysis on December 16. Daily physical therapy and occupational therapy while at the [facility]. - Discharge Plan Prescriptions/Med Rec: Cefdinir [Omnicef] 300 mg PO BID #6 cap Home Medications: Home Meds Cholecalciferol (Vitamin D3) [Vitamin D3] 1,000 unit PO DAILY 07/30/13 [History] Cyanocobalamin (Vitamin B-12) [B-12 Dots] 500 mcg PO BID 07/30/13 [History] Furosemide 40 mg PO DAILY 07/30/13 [History] Iron,Carbonyl/Ascorbic Acid [Vitron-C Tablet] 1 each PO DAILY 07/30/13 [History] Levothyroxine [Synthroid] 75 mcg PO DAILY 07/30/13 [History] Metoprolol Tartrate [Lopressor] 25 mg PO BID 07/30/13 [History] Potassium Chloride [Klor-Con 10] 20 meq PO DAILY 07/30/13 [History] Vitamin B Complex [B Complex] 1 each PO DAILY 07/30/13 [History] Nabumetone 750 mg PO BID PRN 04/21/15 [History] Acetaminophen [Pain Reliever] 1,000 mg PO Q6H PRN 09/28/17 [History] Cetirizine HCl [Zyrtec] 10 mg PO DAILY 09/28/17 [History] Digoxin 125 mcg PO DAILY 09/28/17 [History] Melatonin 10 mg PO BEDTIME 09/28/17 [History] Cefdinir [Omnicef] 300 mg PO BID #6 cap 12/10/17 [Rx] Warfarin [Coumadin] 3.75 mg PO DAILY #0 12/10/17 [Rx] - Discharge Summary/Plan Comment DC Time >30 min.: No - Patient Data Vitals - Most Recent: Last Vital Signs Temp 98.4 F 12/10/17 07:24 Pulse 63 12/10/17 08:46 Resp 16 12/10/17 07:24 BP 121/34 L 12/10/17 08:46 Pulse Ox 94 L 12/10/17 07:24 Weight - Most Recent: 130 lb I&O - Last 24 hours: Intake & Output 12/09/17 12/10/17 12/10/17 22:59 06:59 14:59 Intake Total 480 360 Output Total 750 200 700 Balance -270 -200 -340 Lab Results - Last 24 hrs: Laboratory Results - last 24 hr 12/10/17 12/10/17 12/10/17 Range/Units 04:39 04:39 04:39 WBC 12.5 H (4.5-11.0) K/uL RBC 3.36 (3.30-5.50) M/uL Hgb 10.6 L (12.0-15.0) g/dL Hct 32.5 L (36.0-48.0) % MCV 97 (80-98) fL MCH 32 H (27-31) pg MCHC 33 (32-36) % Plt Count 264 (150-400) K/uL Neut % (Auto) 61 (36-66) % Lymph % (Auto) 17 L (24-44) % Warrick % (Auto) 9 H (2-6) % Eos % (Auto) 12 H (2-4) % Baso % (Auto) 1 (0-1) % PT 18.6 H (9.5-12.0) sec INR 1.70 H (0.80-1.20) Sodium 139 L (140-148) mmol/L Potassium 4.3 (3.6-5.2) mmol/L Chloride 109 H (100-108) mmol/L Carbon Dioxide 22 (21-32) mmol/L Anion Gap 12.3 (5.0-14.0) mmol/L BUN 28 H (7-18) mg/dL Creatinine 1.1 H (0.6-1.0) mg/dL Est Cr Clr Drug Dosing 26.68 mL/min Estimated GFR (MDRD) 47 L (>60) Glucose 72 L (74-106) mg/dL Calcium 7.6 L (8.5-10.1) mg/dL Med Orders - Current: Current Medications Acetaminophen (Tylenol Extra Strength) 1,000 mg PO Q6H PRN PRN Reason: Pain/Fever Cefdinir (Omnicef) 300 mg PO BID [facility] Last Admin: 12/10/17 08:45 Dose: 300 mg Cetirizine HCl (Zyrtec) 10 mg PO DAILY [facility] Last Admin: 12/10/17 08:47 Dose: 10 mg Cholecalciferol (Vitamin D3) 1,000 units PO DAILY [facility] Last Admin: 12/10/17 08:46 Dose: 1,000 units Cyanocobalamin (Vitamin B12) 500 mcg PO BID [facility] Last Admin: 12/10/17 08:47 Dose: 500 mcg Digoxin (Lanoxin) 125 mcg PO DAILY@1300 [facility] Last Admin: 12/09/17 12:59 Dose: 125 mcg Iron/Vitamin C (Vitron-C) 1 tab PO DAILY [facility] Last Admin: 12/10/17 08:46 Dose: 1 tab Levothyroxine Sodium (Levothyroxine) 75 mcg PO DAILY@0730 [facility] Last Admin: 12/10/17 07:40 Dose: 75 mcg Melatonin (Melatonin) 9 mg PO BEDTIME [facility] Last Admin: 12/09/17 20:23 Dose: 9 mg Metoprolol Tartrate (Lopressor) 25 mg PO BID [facility] Last Admin: 12/10/17 08:46 Dose: 25 mg Nabumetone (Relafen) 750 mg PO BID PRN PRN Reason: Pain Ondansetron HCl (Zofran Odt) 4 mg PO Q6H PRN PRN Reason: Nausea able to take PO Polyethylene Glycol (Miralax) 17 gm PO DAILY PRN PRN Reason: Constipation Potassium Chloride (Potassium Chloride) 20 meq PO DAILY [facility] Last Admin: 12/10/17 08:46 Dose: 20 meq Senna/Docusate Sodium (Senna Plus) 1 tab PO BID PRN PRN Reason: Constipation Sodium Chloride (Saline Flush) 10 ml FLUSH ASDIRECTED PRN PRN Reason: Keep Vein Open Vitamin B Complex (Vitamin B Complex) 1 each PO DAILY [facility] Last Admin: 12/10/17 08:46 Dose: 1 each Warfarin Sodium (Coumadin) 5 mg PO ONETIME ONE Stop: 12/10/17 13:01 Discontinued Medications Ceftriaxone Sodium 1 gm/ (Sodium Chloride) 50 mls @ 100 mls/hr IV Q24H [facility] Stop: 12/08/17 19:00 Last Admin: 12/08/17 16:01 Dose: 100 mls/hr Sodium Chloride (Normal Saline) 1,000 mls @ 100 mls/hr IV ASDIRECTED [facility] Stop: 12/07/17 02:46 Last Admin: 12/06/17 17:23 Dose: 100 mls/hr Phytonadione (Aquamephyton) 5 mg PO ONETIME ONE Stop: 12/06/17 17:31 Last Admin: 12/06/17 17:25 Dose: 5 mg Potassium Chloride (Klor-Con M20) 20 meq PO DAILY [facility] Last Admin: 12/08/17 09:17 Dose: Not Given Warfarin Sodium (Coumadin) 3.75 mg PO ONETIME ONE Stop: 12/08/17 13:01 Last Admin: 12/08/17 12:57 Dose: 3.75 mg Warfarin Sodium (Coumadin) 5 mg PO ONETIME ONE Stop: 12/09/17 14:46 Last Admin: 12/09/17 14:44 Dose: 5 mg - Exam Quality Assessment: Reports: DVT Prophylaxis General: Reports: Alert, Oriented, Cooperative, No Acute Distress Lungs: Reports: Clear to Auscultation, Normal Respiratory Effort Cardiovascular: Reports: Regular Rate, Regular Rhythm, No Murmurs GI/Abdominal Exam: Soft, Non-Tender, No Organomegaly, No Distention Extremities: Non-Tender, No Pedal Edema Skin: Reports: Warm, Dry *Q Meaningful Use (DIS) - VTE *Q VTE Pharmacological Contraindications *Q: High INR Value
[2017-12-10] MEDS ORDERED: Warfarin 5 MG Tab PO ONE (13:00)
[2017-12-10] MEDS: Digoxin 125 MCG Tab PO SCH (13:04)
[2017-12-10 13:08] VITALS: BP 94/34
== END 2017-12-10 13:30 | DRG 690 ==
LOC: JP.MS 15:50
PROVIDERS: ADMIT Internal Medicine; ATTEND Hospitalist
DX: N39.0 Urinary tract infection, site not specified (principal); B96.20 Unspecified Escherichia coli [E. coli] as the cause of diseases classified elsewhere; Z16.23 Resistance to quinolones and fluoroquinolones; Z66 Do not resuscitate; R79.1 Abnormal coagulation profile; I48.2 Chronic atrial fibrillation; Z79.01 Long term (current) use of anticoagulants; R60.9 Edema, unspecified; R53.1 Weakness; E11.9 Type 2 diabetes mellitus without complications; E03.9 Hypothyroidism, unspecified; Z98.84 Bariatric surgery status; Z98.0 Intestinal bypass and anastomosis status; N18.3 Chronic kidney disease, stage 3 (moderate); E86.0 Dehydration; Z88.6 Allergy status to analgesic agent; Z88.1 Allergy status to other antibiotic agents; Z88.0 Allergy status to penicillin; Z91.048 Other nonmedicinal substance allergy status
CPT/HCPCS: 36415; 80048; 85025; 85027; 85610; 97162-GP; A9270-GY; J0696; J7030; J7050